=== PATIENT | female | born 1940 | race African-American/Black ===

== ENCOUNTER 2016-04-03 08:10 | Outpatient (CLI) | payer MEDICARE ==
[~2016-04-03 08:10] MED LIST: ACETAMINOPHEN 325 MG TABLET PO PRN; DEXAMETHASONE SOD PHOSPHATE INJ 4 MG/1 ML VIAL IV PRN; DEXTROSE 5%-WATER 250 ML IV PRN; DIPHENHYDRAMINE HCL 50 MG in NORMAL SALINE 50 ML INJ PRN; [UNRECOGNIZED DRUG - OTHER] IV PRN
[2016-04-03 09:20] VITALS: BP 141/65
== END 2016-04-03 11:49 | disposition home or self-care (01) ==
LOC: II 08:10
PROVIDERS: ATTEND Internal Medicine
PROC: 3E0330M Introduction of Antineoplastic, Monoclonal Antibody, into Peripheral Vein, Percutaneous Approach (ICD-10-PCS; principal; 2016-04-03)
PROC: 3E033GC Introduction of Other Therapeutic Substance into Peripheral Vein, Percutaneous Approach (ICD-10-PCS; 2016-04-03)
DX: Z51.11 Encounter for antineoplastic chemotherapy (principal); C85.91 Non-Hodgkin lymphoma, unspecified, lymph nodes of head, face, and neck
CPT/HCPCS: 96413; 96375; A9270; J1100; J1200; J7060; J2860; 96360; 96374

== ENCOUNTER 2016-04-24 11:15 | Outpatient (CLI) | payer MEDICARE ==
[~2016-04-24 11:15] MED LIST changes: -DIPHENHYDRAMINE HCL 50 MG in NORMAL SALINE 50 ML INJ PRN
[2016-04-24] MEDS: DIPHENHYDRAMINE HCL 50 MG in NORMAL SALINE 50 ML INJ PRN ×2 (12:41→13:14)
[2016-04-24 13:09] VITALS: BP 125/61
== END 2016-04-24 14:37 | disposition home or self-care (01) ==
LOC: II 11:15 → 5TH 11:17 → II 14:37
PROVIDERS: ATTEND Internal Medicine
PROC: 3E0330M Introduction of Antineoplastic, Monoclonal Antibody, into Peripheral Vein, Percutaneous Approach (ICD-10-PCS; principal; 2016-04-24)
PROC: 3E033GC Introduction of Other Therapeutic Substance into Peripheral Vein, Percutaneous Approach (ICD-10-PCS; 2016-04-24)
PROC: 3E033GC Introduction of Other Therapeutic Substance into Peripheral Vein, Percutaneous Approach (ICD-10-PCS; 2016-04-24)
DX: Z51.11 Encounter for antineoplastic chemotherapy (principal); C85.91 Non-Hodgkin lymphoma, unspecified, lymph nodes of head, face, and neck
CPT/HCPCS: 96413; 96367; 96375; A9270; J1100; J1200; J7060; J2860

== ENCOUNTER 2016-05-15 09:31 | Outpatient (CLI) | payer MEDICARE ==
[~2016-05-15 09:31] MED LIST changes: +DIPHENHYDRAMINE HCL 50 MG in NORMAL SALINE 50 ML INJ PRN; +DIPHENHYDRAMINE HCL 50 MG in NORMAL SALINE 50 ML IV PRN; +[UNRECOGNIZED DRUG - OTHER] IV PRN; -[UNRECOGNIZED DRUG - OTHER] IV PRN
[2016-05-15 10:11] VITALS: BP 123/60
[2016-05-15] MEDS ORDERED: DIPHENHYDRAMINE HCL 50 MG/ML VIAL INJ PRN (10:13)
== END 2016-05-15 14:34 | disposition home or self-care (01) ==
LOC: II 09:31 → 5TH 09:33 → II 14:34
PROVIDERS: ATTEND Internal Medicine
PROC: 3E03305 Introduction of Other Antineoplastic into Peripheral Vein, Percutaneous Approach (ICD-10-PCS; principal; 2016-05-15)
PROC: 3E033GC Introduction of Other Therapeutic Substance into Peripheral Vein, Percutaneous Approach (ICD-10-PCS; 2016-05-15)
PROC: 3E033GC Introduction of Other Therapeutic Substance into Peripheral Vein, Percutaneous Approach (ICD-10-PCS; 2016-05-15)
DX: C85.91 Non-Hodgkin lymphoma, unspecified, lymph nodes of head, face, and neck (principal); Z51.11 Encounter for antineoplastic chemotherapy
CPT/HCPCS: 96413; 96367; 96375; A9270; J1100; J1200; J7060; J2860

== ENCOUNTER 2016-06-06 09:26 | Outpatient (CLI) | payer MEDICARE ==
[2016-06-06] MEDS ORDERED: DEXTROSE 5%-WATER 250 ML IV PRN (09:51)
[2016-06-06] MEDS ORDERED: ACETAMINOPHEN 325 MG TABLET PO PRN (09:53)
[2016-06-06] MEDS ORDERED: DEXAMETHASONE SOD PHOSPHATE INJ 4 MG/1 ML VIAL IV PRN (09:53)
[2016-06-06] MEDS ORDERED: DIPHENHYDRAMINE HCL 50 MG in NORMAL SALINE 50 ML INJ PRN (09:54)
[2016-06-06] MEDS ORDERED: [UNRECOGNIZED DRUG - OTHER] IV PRN (09:56)
[2016-06-06 10:18] VITALS: BP 140/59
== END 2016-06-06 12:30 | disposition home or self-care (01) ==
LOC: II 09:26 → 5TH 09:30 → II 12:30
PROVIDERS: ATTEND Internal Medicine
PROC: 3E03305 Introduction of Other Antineoplastic into Peripheral Vein, Percutaneous Approach (ICD-10-PCS; principal; 2016-06-06)
PROC: 3E033GC Introduction of Other Therapeutic Substance into Peripheral Vein, Percutaneous Approach (ICD-10-PCS; 2016-06-06)
DX: Z51.11 Encounter for antineoplastic chemotherapy (principal); C85.91 Non-Hodgkin lymphoma, unspecified, lymph nodes of head, face, and neck
CPT/HCPCS: 96413; 96415; 96375; A9270; J1100; J1200; J7060; 96367

== ENCOUNTER 2016-06-27 12:08 | Outpatient (CLI) | payer MEDICARE ==
[~2016-06-27 12:08] MED LIST changes: -DEXAMETHASONE SOD PHOSPHATE INJ 4 MG/1 ML VIAL IV PRN; -DEXTROSE 5%-WATER 250 ML IV PRN; -DIPHENHYDRAMINE HCL 50 MG in NORMAL SALINE 50 ML INJ PRN
[2016-06-27 13:49] VITALS: BP 114/53
[2016-06-27] MEDS: DEXTROSE 5%-WATER 250 ML IV PRN ×2 (14:01→14:51)
== END 2016-06-27 15:50 | disposition home or self-care (01) ==
LOC: II 12:08 → 5TH 12:11 → II 15:50
PROVIDERS: ATTEND Internal Medicine
PROC: 3E0330M Introduction of Antineoplastic, Monoclonal Antibody, into Peripheral Vein, Percutaneous Approach (ICD-10-PCS; principal; 2016-06-27)
PROC: 3E033GC Introduction of Other Therapeutic Substance into Peripheral Vein, Percutaneous Approach (ICD-10-PCS; 2016-06-27)
PROC: 3E0337Z Introduction of Electrolytic and Water Balance Substance into Peripheral Vein, Percutaneous Approach (ICD-10-PCS; 2016-06-27)
DX: Z51.11 Encounter for antineoplastic chemotherapy (principal); C85.91 Non-Hodgkin lymphoma, unspecified, lymph nodes of head, face, and neck
CPT/HCPCS: 96413; 96375; 96361; A9270; J1200; J7060; J2860; 96374; 96415

== ENCOUNTER 2016-07-18 08:27 | Outpatient (CLI) | payer MEDICARE ==
[~2016-07-18 08:27] MED LIST changes: +DEXAMETHASONE SOD PHOSPHATE INJ 4 MG/1 ML VIAL IV PRN; +DEXTROSE 5% IV PRN; +DEXTROSE 5%-WATER 250 ML IV PRN; +WATER IV PRN; +[UNRECOGNIZED DRUG - OTHER] IV PRN; -[UNRECOGNIZED DRUG - OTHER] IV PRN
[2016-07-18 09:36] VITALS: BP 145/72
== END 2016-07-18 10:22 | disposition home or self-care (01) ==
LOC: II 08:27 → 5TH 08:32 → II 10:22
PROVIDERS: ATTEND Internal Medicine
DX: Z51.11 Encounter for antineoplastic chemotherapy (principal); C85.91 Non-Hodgkin lymphoma, unspecified, lymph nodes of head, face, and neck
CPT/HCPCS: 96413; 96375; A9270; J1100; J1200; J7060; J2860; 96360; 96367; 96374

== ENCOUNTER 2016-08-08 10:04 | Outpatient (CLI) | payer MEDICARE ==
[2016-08-08 11:27] VITALS: BP 148/79
== END 2016-08-08 14:08 | disposition home or self-care (01) ==
LOC: II 10:04 → 5TH 10:09 → II 14:08
PROVIDERS: ATTEND Internal Medicine
PROC: 3E0330M Introduction of Antineoplastic, Monoclonal Antibody, into Peripheral Vein, Percutaneous Approach (ICD-10-PCS; principal; 2016-08-08)
PROC: 3E0333Z Introduction of Anti-inflammatory into Peripheral Vein, Percutaneous Approach (ICD-10-PCS; 2016-08-08)
DX: Z51.11 Encounter for antineoplastic chemotherapy (principal); C85.91 Non-Hodgkin lymphoma, unspecified, lymph nodes of head, face, and neck
CPT/HCPCS: 96413; 96367; 96374; A9270; J1100; J1200; J7060; J2860

== ENCOUNTER 2016-08-29 10:20 | Outpatient (CLI) | payer MEDICARE ==
[~2016-08-29 10:20] MED LIST changes: +[UNRECOGNIZED DRUG - OTHER] IV PRN; -[UNRECOGNIZED DRUG - OTHER] IV PRN
[2016-08-29 11:13] VITALS: BP 160/68
== END 2016-08-29 13:04 | disposition home or self-care (01) ==
LOC: II 10:20 → 5TH 10:21 → II 13:04
PROVIDERS: ATTEND Internal Medicine
PROC: 3E0330M Introduction of Antineoplastic, Monoclonal Antibody, into Peripheral Vein, Percutaneous Approach (ICD-10-PCS; principal; 2016-08-29)
PROC: 3E0333Z Introduction of Anti-inflammatory into Peripheral Vein, Percutaneous Approach (ICD-10-PCS; 2016-08-29)
DX: Z51.11 Encounter for antineoplastic chemotherapy (principal); C85.91 Non-Hodgkin lymphoma, unspecified, lymph nodes of head, face, and neck
CPT/HCPCS: 96413; 96367; 96375; A9270; J1100; J1200; J7060; J2860

== ENCOUNTER → 2016-09-16 | Outpatient (CLI) | payer MEDICARE ==
--- NOTE | 2016-09-17 09:06 | RADIOLOGY REPORT (SQ) ---
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 TECHNIQUE: Blood glucose level was verified. Above dose of FDG was injected intravenously. 2-D seg mented attenuation correction images were obtained from the base of the skull to the midthighs. Nonc ontrast CT images were obtained for attenuation correction and fusion with emission images. CT image s were performed without oral or intravenous contrast and are not sensitive for parenchymal lesions. A series of overlapping emission PET images were obtained. Images reviewed and manipulated at [facility] work station by the radiologist. Images stored on PACS. LIMITATIONS: None. FINDINGS: HEAD AND NECK: No areas of abnormal metabolic activity in the soft tissues of the head and neck. CHEST: No areas of abnormal metabolic activity in the chest. ABDOMEN AND PELVIS: No areas of abnormal metabolic activity in the abdomen or pelvis. Expected physi ologic activity is present in the genitourinary system and bowel. PROXIMAL LOWER EXTREMITIES: No areas of abnormal metabolic activity in the soft tissues of the lower extremities. BONES: No abnormal metabolic activity in the visualized skeleton. ADDITIONAL CT FINDINGS: No additional significant findings on the noncontrast CT images. OTHER: No other significant findings. IMPRESSION: Favorable response to therapy. No evidence of local recurrence. TECHNICAL DOCUMENTATION: JOB ID: [id number] [employer]- All Rights Reserved
== END ==
LOC: RAD 15:36
PROVIDERS: ATTEND Internal Medicine
DX: C85.91 Non-Hodgkin lymphoma, unspecified, lymph nodes of head, face, and neck (principal)
CPT/HCPCS: 78815; A9552

== ENCOUNTER 2016-09-19 11:42 | Outpatient (CLI) | payer MEDICARE ==
[~2016-09-19 11:42] MED LIST changes: +DIPHENHYDRAMINE HCL 50 MG in NORMAL SALINE 50 ML INJ PRN; -DIPHENHYDRAMINE HCL 50 MG in NORMAL SALINE 50 ML IV PRN
[2016-09-19 13:55] VITALS: BP 138/59
== END 2016-09-19 14:45 | disposition home or self-care (01) ==
LOC: II 11:42 → 5TH 11:45 → II 14:45
PROVIDERS: ATTEND Internal Medicine
PROC: 3E0330M Introduction of Antineoplastic, Monoclonal Antibody, into Peripheral Vein, Percutaneous Approach (ICD-10-PCS; principal; 2016-09-19)
PROC: 3E0333Z Introduction of Anti-inflammatory into Peripheral Vein, Percutaneous Approach (ICD-10-PCS; 2016-09-19)
PROC: 3E033GC Introduction of Other Therapeutic Substance into Peripheral Vein, Percutaneous Approach (ICD-10-PCS; 2016-09-19)
DX: Z51.11 Encounter for antineoplastic chemotherapy (principal); C85.91 Non-Hodgkin lymphoma, unspecified, lymph nodes of head, face, and neck
CPT/HCPCS: 96413; 96367; 96375; A9270; J1100; J1200; J7060; J2860; 96374

== ENCOUNTER 2016-10-10 08:59 | Outpatient (CLI) | payer MEDICARE ==
[~2016-10-10 08:59] MED LIST changes: -DEXTROSE 5% IV PRN; +DEXTROSE IV PRN; -DIPHENHYDRAMINE HCL 50 MG in NORMAL SALINE 50 ML INJ PRN; +DIPHENHYDRAMINE HCL 50 MG in NORMAL SALINE 50 ML IV PRN; -WATER IV PRN; +[UNRECOGNIZED DRUG - OTHER] IV PRN; -[UNRECOGNIZED DRUG - OTHER] IV PRN
[2016-10-10 09:41] VITALS: BP 153/72
== END 2016-10-10 12:39 | disposition home or self-care (01) ==
LOC: II 08:59 → 5TH 09:13 → II 12:39
PROVIDERS: ATTEND Internal Medicine
PROC: 3E0330M Introduction of Antineoplastic, Monoclonal Antibody, into Peripheral Vein, Percutaneous Approach (ICD-10-PCS; principal; 2016-10-10)
PROC: 3E0333Z Introduction of Anti-inflammatory into Peripheral Vein, Percutaneous Approach (ICD-10-PCS; 2016-10-10)
PROC: 3E033GC Introduction of Other Therapeutic Substance into Peripheral Vein, Percutaneous Approach (ICD-10-PCS; 2016-10-10)
DX: Z51.11 Encounter for antineoplastic chemotherapy (principal); C85.91 Non-Hodgkin lymphoma, unspecified, lymph nodes of head, face, and neck
CPT/HCPCS: 96413; 96367; 96374; A9270; J1100; J1200; J7060; J2860; 96375

== ENCOUNTER 2016-10-31 11:47 | Outpatient (CLI) | payer MEDICARE ==
[~2016-10-31 11:47] MED LIST changes: -DEXAMETHASONE SOD PHOSPHATE INJ 4 MG/1 ML VIAL IV PRN; +DIPHENHYDRAMINE HCL 50 MG in NORMAL SALINE 50 ML INJ PRN; -DIPHENHYDRAMINE HCL 50 MG in NORMAL SALINE 50 ML IV PRN
[2016-10-31 12:02] VITALS: BP 151/65
== END 2016-10-31 14:45 | disposition home or self-care (01) ==
LOC: II 11:47 → 5TH 11:49 → II 14:45
PROVIDERS: ATTEND Internal Medicine
PROC: 3E0330M Introduction of Antineoplastic, Monoclonal Antibody, into Peripheral Vein, Percutaneous Approach (ICD-10-PCS; principal; 2016-10-31)
PROC: 3E033GC Introduction of Other Therapeutic Substance into Peripheral Vein, Percutaneous Approach (ICD-10-PCS; 2016-10-31)
DX: Z51.11 Encounter for antineoplastic chemotherapy (principal); C85.91 Non-Hodgkin lymphoma, unspecified, lymph nodes of head, face, and neck; D36.0 Benign neoplasm of lymph nodes; D47.Z2 Castleman disease
CPT/HCPCS: 96413; 96375; A9270; J1200; J7060; J2860; 96367

== ENCOUNTER 2016-11-21 07:53 | Outpatient (CLI) | payer MEDICARE ==
[~2016-11-21 07:53] MED LIST changes: +DEXTROSE 5% IV PRN; -DEXTROSE IV PRN; -DIPHENHYDRAMINE HCL 50 MG in NORMAL SALINE 50 ML INJ PRN; +DIPHENHYDRAMINE HCL 50 MG in NORMAL SALINE 50 ML IV PRN; +WATER IV PRN; +[UNRECOGNIZED DRUG - OTHER] IV PRN; -[UNRECOGNIZED DRUG - OTHER] IV PRN
[2016-11-21 08:19] VITALS: BP 144/52
== END 2016-11-21 11:44 | disposition home or self-care (01) ==
LOC: II 07:53 → 4W 07:55 → II 11:44
PROVIDERS: ATTEND Internal Medicine
PROC: 3E0330M Introduction of Antineoplastic, Monoclonal Antibody, into Peripheral Vein, Percutaneous Approach (ICD-10-PCS; principal; 2016-11-21)
PROC: 3E033GC Introduction of Other Therapeutic Substance into Peripheral Vein, Percutaneous Approach (ICD-10-PCS; 2016-11-21)
DX: Z51.11 Encounter for antineoplastic chemotherapy (principal); C85.91 Non-Hodgkin lymphoma, unspecified, lymph nodes of head, face, and neck; D36.0 Benign neoplasm of lymph nodes; D47.Z2 Castleman disease
CPT/HCPCS: 96413; 96375; A9270; J1200; J7060; J2860; 96374; 96415

== ENCOUNTER 2016-12-12 08:26 | Outpatient (CLI) | payer MEDICARE ==
[~2016-12-12 08:26] MED LIST changes: +DIPHENHYDRAMINE HCL 50 MG in NORMAL SALINE 50 ML INJ PRN; -DIPHENHYDRAMINE HCL 50 MG in NORMAL SALINE 50 ML IV PRN
[2016-12-12 09:29] VITALS: BP 150/67
== END 2016-12-12 11:20 | disposition home or self-care (01) ==
LOC: II 08:26 → 5TH 08:27 → II 11:20
PROVIDERS: ATTEND Internal Medicine
PROC: 3E0330M Introduction of Antineoplastic, Monoclonal Antibody, into Peripheral Vein, Percutaneous Approach (ICD-10-PCS; principal; 2016-12-12)
PROC: 3E033GC Introduction of Other Therapeutic Substance into Peripheral Vein, Percutaneous Approach (ICD-10-PCS; 2016-12-12)
DX: Z51.11 Encounter for antineoplastic chemotherapy (principal); C85.91 Non-Hodgkin lymphoma, unspecified, lymph nodes of head, face, and neck
CPT/HCPCS: 96413; 96367; A9270; J1200; J7060; J2860

== ENCOUNTER 2017-01-02 11:06 | Outpatient (CLI) | payer MEDICARE ==
[~2017-01-02 11:06] MED LIST changes: -DIPHENHYDRAMINE HCL 50 MG in NORMAL SALINE 50 ML INJ PRN; +DIPHENHYDRAMINE HCL 50 MG in NORMAL SALINE 50 ML IV PRN
[2017-01-02 11:49] VITALS: BP 150/63
== END 2017-01-02 13:54 | disposition home or self-care (01) ==
LOC: II 11:06 → 5TH 11:08 → II 13:54
PROVIDERS: ATTEND Internal Medicine
PROC: 3E0330M Introduction of Antineoplastic, Monoclonal Antibody, into Peripheral Vein, Percutaneous Approach (ICD-10-PCS; principal; 2017-01-02)
PROC: 3E033GC Introduction of Other Therapeutic Substance into Peripheral Vein, Percutaneous Approach (ICD-10-PCS; 2017-01-02)
DX: Z51.11 Encounter for antineoplastic chemotherapy (principal); C85.91 Non-Hodgkin lymphoma, unspecified, lymph nodes of head, face, and neck
CPT/HCPCS: 96413; 96375; A9270; J1200; J7060; J2860; 96367

== ENCOUNTER 2017-01-23 09:00 | Outpatient (CLI) | payer MEDICARE ==
[2017-01-23 09:23] VITALS: BP 139/62
== END 2017-01-23 11:48 | disposition home or self-care (01) ==
LOC: II 09:00 → 5TH 09:06 → II 11:48
PROVIDERS: ATTEND Internal Medicine
PROC: 3E0330M Introduction of Antineoplastic, Monoclonal Antibody, into Peripheral Vein, Percutaneous Approach (ICD-10-PCS; principal; 2017-01-23)
PROC: 3E033GC Introduction of Other Therapeutic Substance into Peripheral Vein, Percutaneous Approach (ICD-10-PCS; 2017-01-23)
DX: Z51.11 Encounter for antineoplastic chemotherapy (principal); C85.91 Non-Hodgkin lymphoma, unspecified, lymph nodes of head, face, and neck
CPT/HCPCS: 96413; 96367; A9270; J1200; J7060; J2860

== ENCOUNTER 2017-02-13 08:06 | Outpatient (CLI) | payer MEDICARE ==
[~2017-02-13 08:06] MED LIST changes: -DIPHENHYDRAMINE HCL 50 MG in NORMAL SALINE 50 ML IV PRN; +DIPHENHYDRAMINE HCL INJ PRN; +NORMAL SALINE INJ PRN
[2017-02-13] MEDS ORDERED: DIPHENHYDRAMINE HCL 50 MG/ML VIAL ONE (09:12)
[2017-02-13 09:42] VITALS: BP 162/58
== END 2017-02-13 12:28 | disposition home or self-care (01) ==
LOC: II 08:06 → 5TH 08:07 → II 12:28
PROVIDERS: ATTEND Internal Medicine
PROC: 3E0330M Introduction of Antineoplastic, Monoclonal Antibody, into Peripheral Vein, Percutaneous Approach (ICD-10-PCS; principal; 2017-02-13)
DX: Z51.11 Encounter for antineoplastic chemotherapy (principal); C85.91 Non-Hodgkin lymphoma, unspecified, lymph nodes of head, face, and neck; D36.0 Benign neoplasm of lymph nodes; D47.Z2 Castleman disease
CPT/HCPCS: 96413; 96375; A9270; J1200; J7060; J2860

== ENCOUNTER → 2017-03-03 | Outpatient (CLI) | payer MEDICARE ==
--- NOTE | 2017-03-04 16:55 | RADIOLOGY REPORT (SQ) ---
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 TECHNIQUE: Blood glucose level was verified. Above dose of FDG was injected intravenously. 2-D seg mented attenuation correction images were obtained from the base of the skull to the midthighs. Nonc ontrast CT images were obtained for attenuation correction and fusion with emission images. CT image s were performed without oral or intravenous contrast and are not sensitive for parenchymal lesions. A series of overlapping emission PET images were obtained. Images reviewed and manipulated at [facility] work station by the radiologist. Images stored on PACS. LIMITATIONS: None. FINDINGS: HEAD AND NECK: No areas of abnormal metabolic activity in the soft tissues of the head and neck. CHEST: No areas of abnormal metabolic activity in the chest. ABDOMEN AND PELVIS: No areas of abnormal metabolic activity in the abdomen or pelvis. Expected physi ologic activity is present in the genitourinary system and bowel. PROXIMAL LOWER EXTREMITIES: No areas of abnormal metabolic activity in the soft tissues of the lower extremities. BONES: No abnormal metabolic activity in the visualized skeleton. ADDITIONAL CT FINDINGS: 5 x 4 cm right renal cortical cysts. Moderate cardiomegaly. Small hiatal he rnia. Non metabolic scarring along the right anterior abdominal wall fat axial image 133 unchanged c ompared to 12/26/2014. OTHER: Liver background SUV 2.1. Blood pool background SUV 1.8 IMPRESSION: No hypermetabolic adenopathy. TECHNICAL DOCUMENTATION: JOB ID: [id number] [employer]- All Rights Reserved
== END ==
LOC: RAD 15:23
PROVIDERS: ATTEND Internal Medicine
DX: C85.91 Non-Hodgkin lymphoma, unspecified, lymph nodes of head, face, and neck (principal)
CPT/HCPCS: 78815; A9552

== ENCOUNTER 2017-03-06 09:53 | Outpatient (CLI) | payer MEDICARE ==
[2017-03-06 11:20] VITALS: BP 141/83
== END 2017-03-06 13:16 | disposition home or self-care (01) ==
LOC: II 09:53 → 5TH 09:55 → II 13:16
PROVIDERS: ATTEND Internal Medicine
PROC: 3E0330M Introduction of Antineoplastic, Monoclonal Antibody, into Peripheral Vein, Percutaneous Approach (ICD-10-PCS; principal; 2017-03-06)
DX: Z51.11 Encounter for antineoplastic chemotherapy (principal); C85.91 Non-Hodgkin lymphoma, unspecified, lymph nodes of head, face, and neck
CPT/HCPCS: 96413; A9270; J1200; J7060; J2860

== ENCOUNTER 2017-03-27 08:04 | Outpatient (CLI) | payer MEDICARE ==
[~2017-03-27 08:04] MED LIST changes: +DIPHENHYDRAMINE HCL 50 MG in NORMAL SALINE 50 ML IV PRN; -DIPHENHYDRAMINE HCL INJ PRN; -NORMAL SALINE INJ PRN; +[UNRECOGNIZED DRUG - OTHER] IV PRN; -[UNRECOGNIZED DRUG - OTHER] IV PRN
[2017-03-27 08:55] VITALS: BP 141/67
== END 2017-03-27 11:16 | disposition home or self-care (01) ==
LOC: 5TH 08:04 → II 08:04
PROVIDERS: ATTEND Internal Medicine
PROC: 3E0330M Introduction of Antineoplastic, Monoclonal Antibody, into Peripheral Vein, Percutaneous Approach (ICD-10-PCS; principal; 2017-03-27)
PROC: 3E033GC Introduction of Other Therapeutic Substance into Peripheral Vein, Percutaneous Approach (ICD-10-PCS; 2017-03-27)
DX: Z51.11 Encounter for antineoplastic chemotherapy (principal); C85.91 Non-Hodgkin lymphoma, unspecified, lymph nodes of head, face, and neck
CPT/HCPCS: 96413; 96374; A9270; J1200; J7060; J2860; 96375; 96415

== ENCOUNTER 2017-04-17 08:00 | Outpatient (CLI) | payer MEDICARE ==
[~2017-04-17 08:00] MED LIST changes: +[UNRECOGNIZED DRUG - OTHER] IV PRN; -[UNRECOGNIZED DRUG - OTHER] IV PRN
[2017-04-17 08:16] LABS: ABSOLUTE LYMPHOCYTES (AUTO) 2.2 10^3/uL (0.5-4.7); ABSOLUTE MONOCYTES (AUTO) 0.5 10^3/uL (0.1-1.4); ABSOLUTE NEUT (AUTO) 1.8 10^3/uL (1.7-8.2); BASOPHILS % (AUTO) 0.7 % (0-2); EOSINOPHILS % (AUTO) 0.5 % (0-6); HEMATOCRIT 40.2 % (36.0-47.0); HEMOGLOBIN 13.5 g/dL (12.0-15.5); LYMPHOCYTES % (AUTO) 48.6 % (13-45); MEAN CORPUSCULAR HEMOGLOBIN 32.6 pg (27.0-33.4); MEAN CORPUSCULAR HGB CONC 33.6 g/dL (32.0-36.0); MEAN CORPUSCULAR VOLUME 97 fl (80-97); MONOCYTES % (AUTO) 11.5 % (3-13); PLATELET COUNT 107 10^3/uL (150-450); RED BLOOD COUNT 4.14 10^6/uL (3.72-5.28); RED CELL DISTRIBUTION WIDTH 12.1 % (11.5-14.0); SEGMENTED NEUTROPHILS % (AUTO) 38.7 % (42-78); TOTAL CELLS COUNTED % (AUTO) 100 %; WHITE BLOOD COUNT 4.6 10^3/uL (4.0-10.5)
[2017-04-17 08:46] VITALS: BP 140/71
== END 2017-04-17 11:20 | disposition home or self-care (01) ==
LOC: II 08:00 → 5TH 08:01 → II 11:20
PROVIDERS: ATTEND Internal Medicine
PROC: 3E0330M Introduction of Antineoplastic, Monoclonal Antibody, into Peripheral Vein, Percutaneous Approach (ICD-10-PCS; principal; 2017-04-17)
PROC: 3E033GC Introduction of Other Therapeutic Substance into Peripheral Vein, Percutaneous Approach (ICD-10-PCS; 2017-04-17)
DX: Z51.11 Encounter for antineoplastic chemotherapy (principal); C85.91 Non-Hodgkin lymphoma, unspecified, lymph nodes of head, face, and neck
CPT/HCPCS: 36415; 85025; 96413; 96374; A9270; J1200; J7060; J2860; 96375

== ENCOUNTER 2017-05-08 10:27 | Outpatient (CLI) | payer MEDICARE ==
[~2017-05-08 10:27] MED LIST changes: -DIPHENHYDRAMINE HCL 50 MG in NORMAL SALINE 50 ML IV PRN; +DIPHENHYDRAMINE HCL IV PRN
[2017-05-08 15:51] VITALS: BP 143/74
== END 2017-05-08 15:51 | disposition home or self-care (01) ==
LOC: II 10:27
PROVIDERS: ATTEND Internal Medicine Hematology & Oncology
PROC: 3E0330M Introduction of Antineoplastic, Monoclonal Antibody, into Peripheral Vein, Percutaneous Approach (ICD-10-PCS; principal; 2017-05-08)
PROC: 3E033GC Introduction of Other Therapeutic Substance into Peripheral Vein, Percutaneous Approach (ICD-10-PCS; 2017-05-08)
DX: Z51.11 Encounter for antineoplastic chemotherapy (principal); C85.91 Non-Hodgkin lymphoma, unspecified, lymph nodes of head, face, and neck
CPT/HCPCS: 96413; 96374; A9270; J1200; J7060; J2860

== ENCOUNTER 2017-05-29 12:54 | Outpatient (CLI) | payer MEDICARE ==
[~2017-05-29 12:54] MED LIST changes: +DIPHENHYDRAMINE HCL 50 MG in NORMAL SALINE 50 ML IV PRN; -DIPHENHYDRAMINE HCL IV PRN; +[UNRECOGNIZED DRUG - OTHER] IV PRN; -[UNRECOGNIZED DRUG - OTHER] IV PRN
[2017-05-29 13:54] VITALS: BP 128/63
== END 2017-05-29 15:46 | disposition home or self-care (01) ==
LOC: II 12:54 → 5TH 13:30 → II 15:46
PROVIDERS: ATTEND Internal Medicine
PROC: 3E0330M Introduction of Antineoplastic, Monoclonal Antibody, into Peripheral Vein, Percutaneous Approach (ICD-10-PCS; principal; 2017-05-29)
PROC: 3E033GC Introduction of Other Therapeutic Substance into Peripheral Vein, Percutaneous Approach (ICD-10-PCS; 2017-05-29)
DX: Z51.11 Encounter for antineoplastic chemotherapy (principal); C85.91 Non-Hodgkin lymphoma, unspecified, lymph nodes of head, face, and neck
CPT/HCPCS: 96413; 96367; A9270; J1200; J7060; J2860; 96375

== ENCOUNTER 2017-06-19 11:48 | Outpatient (CLI) | payer MEDICARE ==
[2017-06-19 12:21] VITALS: BP 140/60
== END 2017-06-19 14:57 | disposition home or self-care (01) ==
LOC: II 11:48 → 5TH 11:58 → II 14:57
PROVIDERS: ATTEND Internal Medicine Hematology & Oncology
PROC: 3E0330M Introduction of Antineoplastic, Monoclonal Antibody, into Peripheral Vein, Percutaneous Approach (ICD-10-PCS; principal; 2017-06-19)
PROC: 3E033GC Introduction of Other Therapeutic Substance into Peripheral Vein, Percutaneous Approach (ICD-10-PCS; 2017-06-19)
DX: Z51.11 Encounter for antineoplastic chemotherapy (principal); C85.91 Non-Hodgkin lymphoma, unspecified, lymph nodes of head, face, and neck
CPT/HCPCS: 96413; 96367; A9270; J1200; J7060; J2860

== ENCOUNTER 2017-07-10 10:23 | Outpatient (CLI) | payer MEDICARE ==
[~2017-07-10 10:23] MED LIST changes: +DIPHENHYDRAMINE HCL 50 MG in NORMAL SALINE 50 ML INJ PRN; -DIPHENHYDRAMINE HCL 50 MG in NORMAL SALINE 50 ML IV PRN
[2017-07-10 11:34] VITALS: BP 150/82
== END 2017-07-10 14:22 | disposition home or self-care (01) ==
LOC: II 10:23 → 5TH 10:27 → II 14:22
PROVIDERS: ATTEND Internal Medicine
PROC: 3E0330M Introduction of Antineoplastic, Monoclonal Antibody, into Peripheral Vein, Percutaneous Approach (ICD-10-PCS; principal; 2017-07-10)
PROC: 3E033GC Introduction of Other Therapeutic Substance into Peripheral Vein, Percutaneous Approach (ICD-10-PCS; 2017-07-10)
DX: Z51.11 Encounter for antineoplastic chemotherapy (principal); C85.91 Non-Hodgkin lymphoma, unspecified, lymph nodes of head, face, and neck
CPT/HCPCS: 96413; A9270; J1200; J7060; J2860; 96367

== ENCOUNTER 2017-07-31 08:05 | Outpatient (CLI) | payer MEDICARE ==
[~2017-07-31 08:05] MED LIST changes: -DIPHENHYDRAMINE HCL 50 MG in NORMAL SALINE 50 ML INJ PRN; +DIPHENHYDRAMINE HCL 50 MG in NORMAL SALINE 50 ML IV PRN; +[UNRECOGNIZED DRUG - OTHER] IV PRN; -[UNRECOGNIZED DRUG - OTHER] IV PRN
[2017-07-31 08:31] VITALS: BP 137/68
== END 2017-07-31 11:00 | disposition home or self-care (01) ==
LOC: II 08:05 → 5TH 08:10 → II 11:00
PROVIDERS: ATTEND Internal Medicine
PROC: 3E0330M Introduction of Antineoplastic, Monoclonal Antibody, into Peripheral Vein, Percutaneous Approach (ICD-10-PCS; principal; 2017-07-31)
PROC: 3E033GC Introduction of Other Therapeutic Substance into Peripheral Vein, Percutaneous Approach (ICD-10-PCS; 2017-07-31)
DX: Z51.11 Encounter for antineoplastic chemotherapy (principal); C85.91 Non-Hodgkin lymphoma, unspecified, lymph nodes of head, face, and neck
CPT/HCPCS: 96367; 96413; J1200; J2860; J7060

== ENCOUNTER 2017-08-21 07:57 | Outpatient (CLI) | payer MEDICARE ==
[2017-08-21] MEDS ORDERED: WATER IV PRN (08:00)
[2017-08-21] MEDS ORDERED: DEXTROSE 5% IV PRN (08:00)
[2017-08-21] MEDS ORDERED: DEXTROSE 5%-WATER 250 ML IV PRN (08:00)
[2017-08-21] MEDS ORDERED: [UNRECOGNIZED DRUG - OTHER] IV PRN (08:00)
[2017-08-21] MEDS ORDERED: ACETAMINOPHEN 325 MG TABLET PO PRN (08:00)
[2017-08-21] MEDS ORDERED: DIPHENHYDRAMINE HCL 50 MG in NORMAL SALINE 50 ML IV PRN (08:00)
[2017-08-21 08:10] VITALS: BP 146/69
== END 2017-08-21 10:45 | disposition home or self-care (01) ==
LOC: II 07:57 → 5TH 07:59 → II 10:45
PROVIDERS: ATTEND Internal Medicine
PROC: 3E0330M Introduction of Antineoplastic, Monoclonal Antibody, into Peripheral Vein, Percutaneous Approach (ICD-10-PCS; principal; 2017-08-21)
PROC: 3E033GC Introduction of Other Therapeutic Substance into Peripheral Vein, Percutaneous Approach (ICD-10-PCS; 2017-08-21)
DX: Z51.11 Encounter for antineoplastic chemotherapy (principal); C85.91 Non-Hodgkin lymphoma, unspecified, lymph nodes of head, face, and neck
CPT/HCPCS: 96413; 96367; A9270; J1200; J7060; J2860

== ENCOUNTER 2017-09-11 09:36 | Outpatient (CLI) | payer MEDICARE ==
[2017-09-11 10:16] VITALS: BP 126/59
== END 2017-09-11 13:17 | disposition home or self-care (01) ==
LOC: II 09:36 → 5TH 10:17 → II 13:17
PROVIDERS: ATTEND Internal Medicine
PROC: 3E0330M Introduction of Antineoplastic, Monoclonal Antibody, into Peripheral Vein, Percutaneous Approach (ICD-10-PCS; principal; 2017-09-11)
DX: Z51.11 Encounter for antineoplastic chemotherapy (principal); C85.91 Non-Hodgkin lymphoma, unspecified, lymph nodes of head, face, and neck
CPT/HCPCS: 96413; 96367; A9270; J1200; J7060; J2860

== ENCOUNTER → 2017-09-29 | Outpatient (CLI) | payer MEDICARE ==
--- NOTE | 2017-09-30 09:10 | RADIOLOGY REPORT (SQ) ---
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 TECHNIQUE: Blood glucose level was verified. Above dose of FDG was injected intravenously. 2-D seg mented attenuation correction images were obtained from the base of the skull to the midthighs. Nonc ontrast CT images were obtained for attenuation correction and fusion with emission images. CT image s were performed without oral or intravenous contrast and are not sensitive for parenchymal lesions. A series of overlapping emission PET images were obtained. Images reviewed and manipulated at [facility] work station by the radiologist. Images stored on PACS. LIMITATIONS: None. FINDINGS: HEAD AND NECK: No areas of abnormal metabolic activity in the soft tissues of the head and neck. CHEST: No areas of abnormal metabolic activity in the chest. ABDOMEN AND PELVIS: No areas of abnormal metabolic activity in the abdomen or pelvis. Expected physi ologic activity is present in the genitourinary system and bowel. PROXIMAL LOWER EXTREMITIES: No areas of abnormal metabolic activity in the soft tissues of the lower extremities. BONES: No abnormal metabolic activity in the visualized skeleton. ADDITIONAL CT FINDINGS: Right upper pole renal cortical cyst. Cardiomegaly. Hiatal hernia. Non met abolic soft tissue stranding right anterior abdominal wall fat axial image 137 OTHER: Liver background activity 2.3 SUV, blood pool background activity 1.9 SUV. IMPRESSION: No metabolically active adenopathy worrisome for recurrence TECHNICAL DOCUMENTATION: JOB ID: [id number] [employer]- All Rights Reserved Reading location - IP/workstation name: [facility]-[email or web address]
== END ==
LOC: RAD 14:54
PROVIDERS: ATTEND Internal Medicine
DX: C85.91 Non-Hodgkin lymphoma, unspecified, lymph nodes of head, face, and neck (principal)
CPT/HCPCS: 78815; A9552

== ENCOUNTER 2017-10-02 10:04 | Outpatient (CLI) | payer MEDICARE ==
[2017-10-02 10:55] VITALS: BP 148/63
== END 2017-10-02 13:28 | disposition home or self-care (01) ==
LOC: II 10:04 → 5TH 10:04 → II 13:28
PROVIDERS: ATTEND Internal Medicine
PROC: 3E03305 Introduction of Other Antineoplastic into Peripheral Vein, Percutaneous Approach (ICD-10-PCS; principal; 2017-10-02)
PROC: 3E033GC Introduction of Other Therapeutic Substance into Peripheral Vein, Percutaneous Approach (ICD-10-PCS; 2017-10-02)
DX: Z51.11 Encounter for antineoplastic chemotherapy (principal); C85.91 Non-Hodgkin lymphoma, unspecified, lymph nodes of head, face, and neck
CPT/HCPCS: 96413; 96367; A9270; J1200; J7060; J2860

== ENCOUNTER 2017-10-23 09:46 | Outpatient (CLI) | payer MEDICARE ==
[~2017-10-23 09:46] MED LIST changes: -DEXTROSE 5% IV PRN; +DEXTROSE IV PRN; +DIPHENHYDRAMINE HCL 50 MG in NORMAL SALINE 50 ML INJ PRN; -DIPHENHYDRAMINE HCL 50 MG in NORMAL SALINE 50 ML IV PRN; -WATER IV PRN; +[UNRECOGNIZED DRUG - OTHER] IV PRN; -[UNRECOGNIZED DRUG - OTHER] IV PRN
[2017-10-23 10:17] VITALS: BP 130/57
== END 2017-10-23 14:07 | disposition home or self-care (01) ==
LOC: II 09:46 → 5TH 09:49 → II 14:07
PROVIDERS: ATTEND Internal Medicine
PROC: 3E03305 Introduction of Other Antineoplastic into Peripheral Vein, Percutaneous Approach (ICD-10-PCS; principal; 2017-10-23)
PROC: 3E033GC Introduction of Other Therapeutic Substance into Peripheral Vein, Percutaneous Approach (ICD-10-PCS; 2017-10-23)
DX: Z51.11 Encounter for antineoplastic chemotherapy (principal); C85.91 Non-Hodgkin lymphoma, unspecified, lymph nodes of head, face, and neck
CPT/HCPCS: 96413; 96367; A9270; J1200; J7060; J2860

== ENCOUNTER 2017-11-13 08:00 | Outpatient (CLI) | payer MEDICARE ==
[~2017-11-13 08:00] MED LIST changes: -DIPHENHYDRAMINE HCL 50 MG in NORMAL SALINE 50 ML INJ PRN; +DIPHENHYDRAMINE HCL 50 MG in NORMAL SALINE 50 ML IV PRN
[2017-11-13 09:32] VITALS: BP 130/68
== END 2017-11-13 11:02 | disposition home or self-care (01) ==
LOC: II 08:00 → 5TH 08:02 → II 11:02
PROVIDERS: ATTEND Internal Medicine
PROC: 3E0330M Introduction of Antineoplastic, Monoclonal Antibody, into Peripheral Vein, Percutaneous Approach (ICD-10-PCS; principal; 2017-11-13)
PROC: 3E033GC Introduction of Other Therapeutic Substance into Peripheral Vein, Percutaneous Approach (ICD-10-PCS; 2017-11-13)
DX: Z51.11 Encounter for antineoplastic chemotherapy (principal); C85.91 Non-Hodgkin lymphoma, unspecified, lymph nodes of head, face, and neck
CPT/HCPCS: 96413; 96367; A9270; J1200; J7060; J2860

== ENCOUNTER 2017-12-11 11:39 | Outpatient (CLI) | payer MEDICARE ==
[2017-12-11 13:42] VITALS: BP 122/64
== END 2017-12-11 15:16 | disposition home or self-care (01) ==
LOC: II 11:39 → 5TH 13:12 → II 15:16
PROVIDERS: ATTEND Internal Medicine
PROC: 3E0330M Introduction of Antineoplastic, Monoclonal Antibody, into Peripheral Vein, Percutaneous Approach (ICD-10-PCS; principal; 2017-12-11)
PROC: 3E033GC Introduction of Other Therapeutic Substance into Peripheral Vein, Percutaneous Approach (ICD-10-PCS; 2017-12-11)
DX: Z51.11 Encounter for antineoplastic chemotherapy (principal); C85.91 Non-Hodgkin lymphoma, unspecified, lymph nodes of head, face, and neck
CPT/HCPCS: 96413; 96367; A9270; J1200; J7060; J2860

== ENCOUNTER 2018-01-01 08:15 | Outpatient (CLI) | payer MEDICARE ==
[~2018-01-01 08:15] MED LIST changes: -DEXTROSE IV PRN; +DIPHENHYDRAMINE HCL 50 MG in NORMAL SALINE 50 ML INJ PRN; -DIPHENHYDRAMINE HCL 50 MG in NORMAL SALINE 50 ML IV PRN; +[UNRECOGNIZED DRUG - OTHER] IV PRN; -[UNRECOGNIZED DRUG - OTHER] IV PRN
[2018-01-01 08:54] VITALS: BP 122/51
== END 2018-01-01 10:37 | disposition home or self-care (01) ==
LOC: II 08:15 → 5TH 08:19 → II 10:37
PROVIDERS: ATTEND Internal Medicine
PROC: 3E0330M Introduction of Antineoplastic, Monoclonal Antibody, into Peripheral Vein, Percutaneous Approach (ICD-10-PCS; principal; 2018-01-01)
PROC: 3E033GC Introduction of Other Therapeutic Substance into Peripheral Vein, Percutaneous Approach (ICD-10-PCS; 2018-01-01)
DX: Z51.11 Encounter for antineoplastic chemotherapy (principal); C85.91 Non-Hodgkin lymphoma, unspecified, lymph nodes of head, face, and neck
CPT/HCPCS: 96413; 96375; A9270; J1200; J7060; J2860; 96367

== ENCOUNTER 2018-01-22 08:58 | Outpatient (CLI) | payer MEDICARE ==
[~2018-01-22 08:58] MED LIST changes: +DEXTROSE IV PRN; -DIPHENHYDRAMINE HCL 50 MG in NORMAL SALINE 50 ML INJ PRN; +DIPHENHYDRAMINE HCL 50 MG in NORMAL SALINE 50 ML IV PRN; +[UNRECOGNIZED DRUG - OTHER] IV PRN; -[UNRECOGNIZED DRUG - OTHER] IV PRN
[2018-01-22 09:27] LABS: ABSOLUTE LYMPHOCYTES (AUTO) 1.6 10^3/uL (0.5-4.7); ABSOLUTE MONOCYTES (AUTO) 0.5 10^3/uL (0.1-1.4); ABSOLUTE NEUT (AUTO) 1.6 10^3/uL (1.7-8.2); BASOPHILS % (AUTO) 0.4 % (0-2); EOSINOPHILS % (AUTO) 0.3 % (0-6); HEMATOCRIT 36.2 % (36.0-47.0); HEMOGLOBIN 12.5 g/dL (12.0-15.5); LYMPHOCYTES % (AUTO) 42.1 % (13-45); MEAN CORPUSCULAR HEMOGLOBIN 33.4 pg (27.0-33.4); MEAN CORPUSCULAR HGB CONC 34.6 g/dL (32.0-36.0); MEAN CORPUSCULAR VOLUME 97 fl (80-97); MONOCYTES % (AUTO) 13.2 % (3-13); PLATELET COUNT 110 10^3/uL (150-450); RED BLOOD COUNT 3.75 10^6/uL (3.72-5.28); RED CELL DISTRIBUTION WIDTH 12.1 % (11.5-14.0); TOTAL CELLS COUNTED % (AUTO) 100 %; WHITE BLOOD COUNT 3.7 10^3/uL (4.0-10.5)
[2018-01-22 09:36] VITALS: BP 134/62
[2018-01-22 09:44] LABS: ALANINE AMINOTRANSFERASE 25 U/L (9-52); ALBUMIN 4.5 g/dL (3.5-5.0); ALKALINE PHOSPHATASE 39 U/L (38-126); ANION GAP 11 (5-19); ASPARTATE AMINO TRANSFERASE 48 U/L (14-36); BILIRUBIN,DIRECT 0.1 mg/dL (0.0-0.4); BILIRUBIN,TOTAL 0.5 mg/dL (0.2-1.3); BLOOD UREA NITROGEN 17 mg/dL (7-20); CALCIUM 9.5 mg/dL (8.4-10.2); CARBON DIOXIDE 30 mmol/L (22-30); CHLORIDE 105 mmol/L (98-107); GLUCOSE 109 mg/dL (75-110); POTASSIUM 4.1 mmol/L (3.6-5.0); SODIUM 146.3 mmol/L (137-145); TOTAL PROTEIN 8.1 g/dL (6.3-8.2)
== END 2018-01-22 13:14 | disposition home or self-care (01) ==
LOC: II 08:58 → 5TH 09:10 → II 13:14
PROVIDERS: ATTEND Internal Medicine
PROC: 3E0330M Introduction of Antineoplastic, Monoclonal Antibody, into Peripheral Vein, Percutaneous Approach (ICD-10-PCS; principal; 2018-01-22)
PROC: 3E033GC Introduction of Other Therapeutic Substance into Peripheral Vein, Percutaneous Approach (ICD-10-PCS; 2018-01-22)
DX: Z51.11 Encounter for antineoplastic chemotherapy (principal); C85.91 Non-Hodgkin lymphoma, unspecified, lymph nodes of head, face, and neck
CPT/HCPCS: 36415; 85025; 80053; 96413; 96367; A9270; J1200; J7060; J2860

== ENCOUNTER 2018-02-12 11:13 | Outpatient (CLI) | payer MEDICARE ==
[2018-02-12 11:41] VITALS: BP 137/64
[2018-02-12] MEDS ORDERED: DEXTROSE 5% IV PRN (11:54)
[2018-02-12] MEDS ORDERED: WATER IV PRN (11:54)
[2018-02-12] MEDS ORDERED: [UNRECOGNIZED DRUG - OTHER] IV PRN (11:54)
== END 2018-02-12 14:35 | disposition home or self-care (01) ==
LOC: II 11:13 → 5TH 11:15 → II 14:35
PROVIDERS: ATTEND Internal Medicine
PROC: 3E0330M Introduction of Antineoplastic, Monoclonal Antibody, into Peripheral Vein, Percutaneous Approach (ICD-10-PCS; principal; 2018-02-12)
PROC: 3E033GC Introduction of Other Therapeutic Substance into Peripheral Vein, Percutaneous Approach (ICD-10-PCS; 2018-02-12)
DX: Z51.11 Encounter for antineoplastic chemotherapy (principal); C85.91 Non-Hodgkin lymphoma, unspecified, lymph nodes of head, face, and neck
CPT/HCPCS: 96413; 96367; A9270; J1200; J7060; J2860

== ENCOUNTER → 2018-03-03 | Outpatient (CLI) | payer MEDICARE ==
--- NOTE | 2018-03-03 11:56 | RADIOLOGY REPORT (SQ) ---
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 RENAL FUNCTION: Creatinine 0.7 TECHNIQUE: CT scan of the chest performed using helical scanning technique with dynamic intravenous contrast injection. Images reviewed with lung, soft tissue and bone windows. Reconstructed coronal a nd sagittal MPR images reviewed. All images stored on PACS. CT scan of the abdomen and pelvis performed with intravenous and without oral contrastusing helical s tiff technique with dynamic intravenous contrast injection. Images reviewed with lung, soft tissu e and bone windows. Reconstructed coronal and sagittal MPR images reviewed. Delayed images for eval uation of the urinary system also acquired and evaluated. All images stored on PACS. All CT scanners at this facility use dose modulation, iterative reconstruction, and/or weight based d osing when appropriate to reduce radiation dose to as low as reasonably achievable (ALARA). [facility]: Dose Right [facility]: CareDose [facility]: Dose Right [facility]: Teradose 4D [facility]: ServiceMesh RADIATION DOSE: 18 mGy total exam . LIMITATIONS: None. FINDINGS: CHEST: LUNGS AND PLEURA: No opacities, nodules, masses. No pneumothorax. No effusions. HILAR AND MEDIASTINAL STRUCTURES: No identified masses or abnormal nodes. HEART AND VASCULAR STRUCTURES: No aneurysm or dissection. No central pulmonary emboli. No pericardi al effusion. HARDWARE: None. THYROID AND OTHER SOFT TISSUES: No masses. No adenopathy. BONES: No significant finding. OTHER: No other significant finding. ABDOMEN AND PELVIS: LIVER: Normal size. No masses. No dilated ducts. SPLEEN: Normal size. No focal lesions. PANCREAS: No masses. No significant calcifications. No adjacent inflammation or peripancreatic fluid collections. Pancreatic duct not dilated. GALLBLADDER: Surgically absent ADRENAL GLANDS: No significant masses or asymmetry. RIGHT KIDNEY AND URETER: No solid masses. 5.5 x 4.2 cm right upper pole renal cortical cyst. No sig nificant calcification. No hydronephrosis or hydroureter. LEFT KIDNEY AND URETER: No solid masses. No significant calcification. No hydronephrosis or hydrouret er. AORTA AND VESSELS: No aneurysm. No dissection. Renal arteries, SMA, celiac without stenosis. RETROPERITONEUM: No retroperitoneal adenopathy, hemorrhage or masses. BOWEL AND PERITONEAL CAVITY: No masses or inflammatory changes. No free fluid or peritoneal masses. APPENDIX: Not identified ABDOMINAL WALL: No masses. No hernias. PELVIS: No mass or free fluid. Normal bladder. Normal size postmenopausal female pelvic organs BONES: No significant or acute findings. OTHER: No other significant finding. IMPRESSION: No CT evidence of recurrent lymphoma over the chest abdomen or pelvis TECHNICAL DOCUMENTATION: JOB ID: [id number] Quality ID # [id number]: Final reports with documentation of one or more dose reduction techniques (e.g., Au tomated exposure control, adjustment of the mA and/or kV according to patient size, use of iterative reconstruction technique) 2010 [employer]- All Rights Reserved Reading location - IP/workstation name: [facility]-[email or web address]
--- NOTE | 2018-03-03 13:21 | RADIOLOGY REPORT (SQ) ---
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 No oral contrast. Images reviewed with lung, soft tissue, and bone windows. Reconstructed coronal and sagittal MPR images reviewed. Delayed images for evaluation of the urinary system also acquired. All images stored on PACS. All CT scanners at this facility use dose modulation, iterative reconstruction, and/or weight based d osing when appropriate to reduce radiation dose to as low as reasonably achievable (ALARA). [facility]: Dose Right [facility]: CareDose [facility]: Dose Right [facility]: Teradose 4D [facility]: [employer] CONTRAST TYPE AND DOSE: contrast/concentration: Isovue 350.00 mg/ml; Total Contrast Delivered: 79.0 ml; Total Saline Delivered: 68.0 ml RENAL FUNCTION: Creatinine 0.7 RADIATION DOSE: CT Rad equipment meets quality standard of care and radiation dose reduction techniq ues were employed. CTDIvol: 5.2 - 6.4 mGy. DLP: 817 mGy-cm.. LIMITATIONS: None. FINDINGS: LOWER CHEST: Small hiatal hernia. Please see CT chest same date LIVER: Normal size. No masses. No dilated ducts. SPLEEN: Normal size. No focal lesions. PANCREAS: No masses. No significant calcifications. No adjacent inflammation or peripancreatic fluid collections. Pancreatic duct not dilated. GALLBLADDER: No identified stones by CT criteria. No inflammatory changes to suggest cholecystitis. ADRENAL GLANDS: No significant masses or asymmetry. RIGHT KIDNEY AND URETER: No solid masses. 5.5 x 4 cm right upper pole renal cortical cyst. No signi ficant calcifications. No hydronephrosis or hydroureter. LEFT KIDNEY AND URETER: No solid masses. No significant calcifications. No hydronephrosis or hydr oureter. AORTA AND VESSELS: No aneurysm. No dissection. Renal arteries, SMA, celiac without stenosis. RETROPERITONEUM: No retroperitoneal adenopathy, hemorrhage or masses. Specifically, no mesenteric ad enopathy is present. BOWEL AND PERITONEAL CAVITY: No masses or inflammatory changes. No free fluid or peritoneal masses. APPENDIX: Not identified. No right lower quadrant inflammatory change PELVIS: No mass. No free fluid. Normal bladder. Normal size female pelvic organs. ABDOMINAL WALL: No masses. No hernias. BONES: No significant or acute findings. OTHER: No other significant finding. IMPRESSION: No CT evidence of recurrent lymphoma over the abdomen or pelvis TECHNICAL DOCUMENTATION: JOB ID: [id number] Quality ID # [id number]: Final reports with documentation of one or more dose reduction techniques (e.g., Au tomated exposure control, adjustment of the mA and/or kV according to patient size, use of iterative reconstruction technique) 2010 [employer]- All Rights Reserved Reading location - IP/workstation name: [email or web address]
== END ==
LOC: RAD 09:05
PROVIDERS: ATTEND Internal Medicine
DX: C85.91 Non-Hodgkin lymphoma, unspecified, lymph nodes of head, face, and neck (principal); C81.78 Other Hodgkin lymphoma, lymph nodes of multiple sites
CPT/HCPCS: 71260; 74177

== ENCOUNTER 2018-03-05 10:41 | Outpatient (CLI) | payer MEDICARE ==
[~2018-03-05 10:41] MED LIST changes: +DEXTROSE 5% IV PRN; -DEXTROSE IV PRN; +WATER IV PRN; +[UNRECOGNIZED DRUG - OTHER] IV PRN; -[UNRECOGNIZED DRUG - OTHER] IV PRN
[2018-03-05] MEDS ORDERED: [UNRECOGNIZED DRUG - OTHER] IV PRN (11:27)
[2018-03-05] MEDS ORDERED: DEXTROSE 5% IV PRN (11:27)
[2018-03-05] MEDS ORDERED: WATER IV PRN (11:27)
== END 2018-03-05 13:51 | disposition home or self-care (01) ==
LOC: 5TH 10:41 → II 10:41
PROVIDERS: ATTEND Internal Medicine
PROC: 3E0330M Introduction of Antineoplastic, Monoclonal Antibody, into Peripheral Vein, Percutaneous Approach (ICD-10-PCS; principal; 2018-03-05)
PROC: 3E033GC Introduction of Other Therapeutic Substance into Peripheral Vein, Percutaneous Approach (ICD-10-PCS; 2018-03-05)
DX: Z51.11 Encounter for antineoplastic chemotherapy (principal); C85.91 Non-Hodgkin lymphoma, unspecified, lymph nodes of head, face, and neck; D36.0 Benign neoplasm of lymph nodes; D47.Z2 Castleman disease
CPT/HCPCS: 96413; 96367; A9270; J1200; J7060; J2860

== ENCOUNTER 2018-03-11 21:13 | Emergency (ER) | payer MEDICARE ==
[2018-03-11] MEDS ORDERED: FAMOTIDINE 20 MG TABLET PO ONE (22:12)
[2018-03-11] MEDS ORDERED: DIPHENHYDRAMINE HCL 50 MG CAPSULE PO ONE (22:12)
[2018-03-11] MEDS ORDERED: PREDNISONE 20 MG TABLET PO ONE (22:12)
--- NOTE | 2018-03-11 22:13 | ER Document Report ---
ED Medical Screen (RME) - General Chief Complaint: Allergic Reaction Stated Complaint: ITCHING/POSSIBLE ALLERGIC REACTION Time Seen by Provider: 03/11/18 22:11 Mode of Arrival: Ambulatory Information source: Patient Notes: Patient is a 78-year-old female who presents to the emergency department with chief complaint of itching all over. 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 She states that she usually has Benadryl given prior to the infusion however this time she thinks it did not give her any Benadryl. She reports that she started having generalized itching on . She denies any difficulty breathing, difficulty breathing or swallowing. Patient is speaking in complete sentences with no acute distress noted. TRAVEL OUTSIDE OF THE [place] IN LAST 30 DAYS: No - Related Data Allergies/Adverse Reactions: Sulfa (Sulfonamide Antibiotics) Allergy (Verified 05/11/12 08:11) Past Medical History - Past Medical History Cardiac Medical History: Reports: Hx Hypertension Neurological Medical History: Denies: Hx Seizures Musculoskeltal Medical History: Reports Hx Arthritis Past Surgical History: Denies: Hx Hysterectomy - Immunizations Hx Diphtheria, Pertussis, Tetanus Vaccination: Yes Physical Exam - Vital signs Vitals: Temp Pulse Resp BP Pulse Ox 98.4 F 83 18 126/65 H 94 03/11/18 21:34 03/11/18 21:34 03/11/18 21:34 03/11/18 21:34 03/11/18 21:34 Course - Vital Signs Vital signs: Temp Pulse Resp BP Pulse Ox 98.4 F 83 18 126/65 H 94 03/11/18 21:34 03/11/18 21:34 03/11/18 21:34 03/11/18 21:34 03/11/18 21:34 Doctor's Discharge - Discharge Referrals: ALEXANDER KINGSTON MD [Primary Care Provider] - Follow up as needed
--- NOTE | 2018-03-11 22:54 | ER Document Report ---
ED General - General Chief Complaint: Allergic Reaction Stated Complaint: ITCHING/POSSIBLE ALLERGIC REACTION Time Seen by Provider: 03/11/18 22:11 Mode of Arrival: Ambulatory Notes: Patient is a 78-year-old female who presents to the emergency department with chief complaint of itching all over. 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 She states that she usually has Benadryl given prior to the infusion however this time she thinks it did not give her any Benadryl. She reports that she started having generalized itching on . She denies any difficulty breathing, difficulty breathing or swallowing. Patient is speaking in complete sentences with no acute distress noted. TRAVEL OUTSIDE OF THE [place] IN LAST 30 DAYS: No - Related Data Allergies/Adverse Reactions: Sulfa (Sulfonamide Antibiotics) Allergy (Verified 05/11/12 08:11) Past Medical History - General Information source: Patient - Social History Smoking Status: Never Smoker Frequency of alcohol use: None Drug Abuse: None Family History: Reviewed & Not Pertinent - Past Medical History Cardiac Medical History: Reports: Hx Hypertension Neurological Medical History: Denies: Hx Seizures Musculoskeletal Medical History: Reports Hx Arthritis Past Surgical History: Denies: Hx Hysterectomy - Immunizations Hx Diphtheria, Pertussis, Tetanus Vaccination: Yes Hx Pneumococcal Vaccination: 04/18/14 Review of Systems - Review of Systems Skin: See HPI -: Yes All other systems reviewed and negative Physical Exam - Vital signs Vitals: Temp Pulse Resp BP Pulse Ox 98.4 F 83 18 126/65 H 94 03/11/18 21:34 03/11/18 21:34 03/11/18 21:34 03/11/18 21:34 03/11/18 21:34 - Notes Notes: PHYSICAL EXAMINATION: GENERAL: Well-appearing, well-nourished and in no acute distress. HEAD: Atraumatic, normocephalic. EYES: Pupils equal round and reactive to light, extraocular movements intact, conjunctiva are normal. ENT: Nares patent, oropharynx clear without exudates. Moist mucous membranes. NECK: Normal range of motion, supple without lymphadenopathy LUNGS: Breath sounds clear to auscultation bilaterally and equal. No wheezes rales or rhonchi. HEART: Regular rate and rhythm without murmurs ABDOMEN: Soft, nontender, nondistended abdomen. No guarding, no rebound. No masses appreciated. Female : deferred Musculoskeletal: Normal range of motion, no pitting or edema. No cyanosis. NEUROLOGICAL: Cranial nerves grossly intact. Normal speech, normal gait. Normal sensory, motor exams PSYCH: Normal mood, normal affect. SKIN: Warm, Dry, normal turgor, no rashes or lesions noted. Scattered erythema were patient has been itching consistently. Course - Re-evaluation Re-evalutation: Patient was given Benadryl, Pepcid and prednisone p.o. She was monitored in the triage area and after approximately 1 hour she reports that her symptoms have resolved. She does not have any hives. She does not have any shortness of breath or difficulty swallowing. She has a follow-up appointment in 4 days with her primary care, she will be discharged home in stable condition with a ED return precautions. - Vital Signs Vital signs: Temp Pulse Resp BP Pulse Ox 98.4 F 83 18 130/69 H 99 03/11/18 23:11 03/11/18 23:11 03/11/18 21:34 03/11/18 23:11 03/11/18 23:11 Discharge - Discharge Clinical Impression: Pruritus Condition: Stable Disposition: HOME, SELF-CARE Additional Instructions: Acute Allergic Reaction Your symptoms are POSSIBLY due to an allergic reaction. Allergy can cause hives, swelling of the hands, feet, and face, hoarseness, and difficulty swallowing or breathing. It may be due to exposure to medication, animal dander, foods, infection, or insect bites. Medication is a common cause, even when prior use of this same medication caused no problems. Acute treatment may include adrenalin and antihistamines. Usually, the specific allergic agent can't be identified unless repeated episodes occur. Home treatment includes the following: (1) Stop any suspicious medications. This will be discussed with you. (2) Oral antihistamines for the next four to five days. Example, diphenhydramine (Benadryl) every four hours. (3) You may also use cimetidine (Tagamet), ranitidine (Zantac), or famotidine (Pepcid) every four hours if diphenhydramine is not controlling itching and hives. (4) Avoid aspirin until the hives completely disappear. (5) Avoid hot bahs or showers until the hives are completely gone. Call the doctor if faintness, difficulty swallowing, tightness in the chest, or wheezing occurs. Please take medications as prescribed. You may also take Benadryl 25-50 mg every 6 hours. Please take note that the prednisone may make you have elevated blood sugars over the next couple of days, do not let this alarm you. Continue all other medications as prescribed. Please follow-up with Dr. ROLLE as originally planned. Prescriptions: Famotidine [Pepcid 40 mg Tablet] 40 mg PO BID #10 tablet Prednisone [Deltasone 20 mg Tablet] 3 tab PO DAILY 4 Days #12 tablet Referrals: ALEXANDER KINGSTON MD [Primary Care Provider] - Follow up as needed
[2018-03-11 23:12] VITALS: BP 130/69
== END 2018-03-11 23:12 | disposition home or self-care (01) ==
LOC: ER 21:13
DX: L29.9 Pruritus, unspecified (principal); I10 Essential (primary) hypertension; Z88.2 Allergy status to sulfonamides
CPT/HCPCS: 99283; A9270 ×3; J7512

== ENCOUNTER 2018-03-26 12:14 | Outpatient (CLI) | payer MEDICARE ==
[~2018-03-26 12:14] MED LIST changes: +DIPHENHYDRAMINE HCL 50 MG in NORMAL SALINE 50 ML INJ PRN; +[UNRECOGNIZED DRUG - OTHER] IV PRN; -[UNRECOGNIZED DRUG - OTHER] IV PRN
[2018-03-26 12:50] VITALS: BP 125/59
[2018-03-26 14:33] LABS: ABSOLUTE EOSINOPHILS # (AUTO) 0.1 10^3/uL (0.0-0.6); ABSOLUTE LYMPHOCYTES (AUTO) 1.3 10^3/uL (0.5-4.7); ABSOLUTE MONOCYTES (AUTO) 0.5 10^3/uL (0.1-1.4); ABSOLUTE NEUT (AUTO) 2.4 10^3/uL (1.7-8.2); BASOPHILS % (AUTO) 0.5 % (0-2); EOSINOPHILS % (AUTO) 1.7 % (0-6); HEMATOCRIT 34.1 % (36.0-47.0); HEMOGLOBIN 11.6 g/dL (12.0-15.5); MEAN CORPUSCULAR HEMOGLOBIN 33.4 pg (27.0-33.4); MEAN CORPUSCULAR HGB CONC 34.1 g/dL (32.0-36.0); MEAN CORPUSCULAR VOLUME 98 fl (80-97); MONOCYTES % (AUTO) 11.1 % (3-13); PLATELET COUNT 143 10^3/uL (150-450); RED BLOOD COUNT 3.49 10^6/uL (3.72-5.28); RED CELL DISTRIBUTION WIDTH 12.5 % (11.5-14.0); SEGMENTED NEUTROPHILS % (AUTO) 56.7 % (42-78); TOTAL CELLS COUNTED % (AUTO) 100 %; WHITE BLOOD COUNT 4.3 10^3/uL (4.0-10.5)
[2018-03-26] MEDS ORDERED: DEXTROSE 5% IV PRN (15:03)
[2018-03-26] MEDS ORDERED: WATER IV PRN (15:03)
[2018-03-26] MEDS ORDERED: [UNRECOGNIZED DRUG - OTHER] IV PRN (15:03)
== END 2018-03-26 17:19 | disposition home or self-care (01) ==
LOC: II 12:14 → 5TH 12:39 → II 17:19
PROVIDERS: ATTEND Internal Medicine
PROC: 3E0330M Introduction of Antineoplastic, Monoclonal Antibody, into Peripheral Vein, Percutaneous Approach (ICD-10-PCS; principal; 2018-03-26)
PROC: 3E033GC Introduction of Other Therapeutic Substance into Peripheral Vein, Percutaneous Approach (ICD-10-PCS; 2018-03-26)
DX: Z51.11 Encounter for antineoplastic chemotherapy (principal); C85.91 Non-Hodgkin lymphoma, unspecified, lymph nodes of head, face, and neck; D47.Z2 Castleman disease; Z79.899 Other long term (current) drug therapy
CPT/HCPCS: 36415; 85025; 96413; 96367; A9270; J1200; J7060; J2860

== ENCOUNTER 2018-04-16 09:43 | Outpatient (CLI) | payer MEDICARE ==
[~2018-04-16 09:43] MED LIST changes: +DEXAMETHASONE SOD PHOSPHATE 10 MG in NORMAL SALINE 50 ML IV PRN; -DIPHENHYDRAMINE HCL 50 MG in NORMAL SALINE 50 ML INJ PRN; +[UNRECOGNIZED DRUG - OTHER] IV PRN; -[UNRECOGNIZED DRUG - OTHER] IV PRN
[2018-04-16 10:39] VITALS: BP 149/69
== END 2018-04-16 14:05 | disposition home or self-care (01) ==
LOC: II 09:43 → 5TH 09:53 → II 14:05
PROVIDERS: ATTEND Internal Medicine
PROC: 3E0330M Introduction of Antineoplastic, Monoclonal Antibody, into Peripheral Vein, Percutaneous Approach (ICD-10-PCS; principal; 2018-04-16)
PROC: 3E0333Z Introduction of Anti-inflammatory into Peripheral Vein, Percutaneous Approach (ICD-10-PCS; 2018-04-16)
PROC: 3E033GC Introduction of Other Therapeutic Substance into Peripheral Vein, Percutaneous Approach (ICD-10-PCS; 2018-04-16)
DX: Z51.11 Encounter for antineoplastic chemotherapy (principal); C85.91 Non-Hodgkin lymphoma, unspecified, lymph nodes of head, face, and neck
CPT/HCPCS: 96413; 96367; A9270; J1200; J7060; J1100; J2860

== ENCOUNTER 2018-05-07 10:08 | Outpatient (CLI) | payer MEDICARE ==
[~2018-05-07 10:08] MED LIST changes: +[UNRECOGNIZED DRUG - OTHER] IV PRN; -[UNRECOGNIZED DRUG - OTHER] IV PRN
[2018-05-07 12:22] VITALS: BP 165/74
== END 2018-05-07 14:11 | disposition home or self-care (01) ==
LOC: II 10:08 → 5TH 10:12 → II 14:11
PROVIDERS: ATTEND Internal Medicine
PROC: 3E0330M Introduction of Antineoplastic, Monoclonal Antibody, into Peripheral Vein, Percutaneous Approach (ICD-10-PCS; principal; 2018-05-07)
PROC: 3E033GC Introduction of Other Therapeutic Substance into Peripheral Vein, Percutaneous Approach (ICD-10-PCS; 2018-05-07)
PROC: 3E0333Z Introduction of Anti-inflammatory into Peripheral Vein, Percutaneous Approach (ICD-10-PCS; 2018-05-07)
DX: Z51.11 Encounter for antineoplastic chemotherapy (principal); C85.91 Non-Hodgkin lymphoma, unspecified, lymph nodes of head, face, and neck
CPT/HCPCS: 96413; 96367; A9270; J1200; J7060; J1100; J2860

== ENCOUNTER 2018-05-28 09:08 | Outpatient (CLI) | payer MEDICARE ==
[~2018-05-28 09:08] MED LIST changes: -DEXTROSE 5% IV PRN; +DEXTROSE IV PRN; -WATER IV PRN; +[UNRECOGNIZED DRUG - OTHER] IV PRN; -[UNRECOGNIZED DRUG - OTHER] IV PRN
[2018-05-28 09:35] VITALS: BP 157/65
== END 2018-05-28 11:57 | disposition home or self-care (01) ==
LOC: II 09:08 → 5TH 09:20 → II 11:57
PROVIDERS: ATTEND Internal Medicine
PROC: 3E0330M Introduction of Antineoplastic, Monoclonal Antibody, into Peripheral Vein, Percutaneous Approach (ICD-10-PCS; principal; 2018-05-28)
PROC: 3E0333Z Introduction of Anti-inflammatory into Peripheral Vein, Percutaneous Approach (ICD-10-PCS; 2018-05-28)
PROC: 3E033GC Introduction of Other Therapeutic Substance into Peripheral Vein, Percutaneous Approach (ICD-10-PCS; 2018-05-28)
DX: Z51.11 Encounter for antineoplastic chemotherapy (principal); C85.91 Non-Hodgkin lymphoma, unspecified, lymph nodes of head, face, and neck
CPT/HCPCS: 96413; 96365; 96367; A9270; J1200; J7060; J1100; J2860

== ENCOUNTER 2018-06-18 09:15 | Outpatient (CLI) | payer MEDICARE ==
[~2018-06-18 09:15] MED LIST changes: -DEXTROSE IV PRN; +[UNRECOGNIZED DRUG - OTHER] IV PRN; -[UNRECOGNIZED DRUG - OTHER] IV PRN
[2018-06-18 10:40] VITALS: BP 143/59
== END 2018-06-18 14:13 | disposition home or self-care (01) ==
LOC: II 09:15 → 5TH 09:38 → II 14:13
PROVIDERS: ATTEND Internal Medicine
PROC: 3E0330M Introduction of Antineoplastic, Monoclonal Antibody, into Peripheral Vein, Percutaneous Approach (ICD-10-PCS; principal; 2018-06-18)
PROC: 3E0333Z Introduction of Anti-inflammatory into Peripheral Vein, Percutaneous Approach (ICD-10-PCS; 2018-06-18)
PROC: 3E033GC Introduction of Other Therapeutic Substance into Peripheral Vein, Percutaneous Approach (ICD-10-PCS; 2018-06-18)
DX: Z51.11 Encounter for antineoplastic chemotherapy (principal); C85.91 Non-Hodgkin lymphoma, unspecified, lymph nodes of head, face, and neck
CPT/HCPCS: 96413; 96367; A9270; J1200; J7060; J1100; J2860

== ENCOUNTER 2018-07-09 09:52 | Outpatient (CLI) | payer MEDICARE ==
[~2018-07-09 09:52] MED LIST changes: +DEXAMETHASONE 10 MG in NS 50 ML IV PRN; -DEXAMETHASONE SOD PHOSPHATE 10 MG in NORMAL SALINE 50 ML IV PRN; +DIPHENHYDRAMINE 50 MG in NS 50 ML IV PRN; -DIPHENHYDRAMINE HCL 50 MG in NORMAL SALINE 50 ML IV PRN
[2018-07-09] MEDS ORDERED: WATER IV PRN (10:06)
[2018-07-09] MEDS ORDERED: [UNRECOGNIZED DRUG - OTHER] IV PRN (10:06)
[2018-07-09] MEDS ORDERED: DEXTROSE 5% IV PRN (10:06)
[2018-07-09 10:18] VITALS: BP 150/70
== END 2018-07-09 12:56 | disposition home or self-care (01) ==
LOC: II 09:52 → 5TH 10:22 → II 12:56
PROVIDERS: ATTEND Internal Medicine
PROC: 3E0330M Introduction of Antineoplastic, Monoclonal Antibody, into Peripheral Vein, Percutaneous Approach (ICD-10-PCS; principal; 2018-07-09)
PROC: 3E0333Z Introduction of Anti-inflammatory into Peripheral Vein, Percutaneous Approach (ICD-10-PCS; 2018-07-09)
PROC: 3E033GC Introduction of Other Therapeutic Substance into Peripheral Vein, Percutaneous Approach (ICD-10-PCS; 2018-07-09)
DX: Z51.11 Encounter for antineoplastic chemotherapy (principal); C85.91 Non-Hodgkin lymphoma, unspecified, lymph nodes of head, face, and neck; D38.0 Neoplasm of uncertain behavior of larynx; D47.Z2 Castleman disease
CPT/HCPCS: 96413; 96365; 96366; A9270; J1200; J7060; J1100; J2860; 96367

== ENCOUNTER 2018-07-30 09:34 | Outpatient (CLI) | payer MEDICARE ==
[~2018-07-30 09:34] MED LIST changes: +DEXTROSE IV PRN; +[UNRECOGNIZED DRUG - OTHER] IV PRN; -[UNRECOGNIZED DRUG - OTHER] IV PRN
[2018-07-30 10:49] VITALS: BP 145/67
== END 2018-07-30 13:43 | disposition home or self-care (01) ==
LOC: II 09:34 → 5TH 09:35 → II 13:43
PROVIDERS: ATTEND Internal Medicine
PROC: 3E0330M Introduction of Antineoplastic, Monoclonal Antibody, into Peripheral Vein, Percutaneous Approach (ICD-10-PCS; principal; 2018-07-30)
PROC: 3E0333Z Introduction of Anti-inflammatory into Peripheral Vein, Percutaneous Approach (ICD-10-PCS; 2018-07-30)
PROC: 3E033GC Introduction of Other Therapeutic Substance into Peripheral Vein, Percutaneous Approach (ICD-10-PCS; 2018-07-30)
DX: Z51.11 Encounter for antineoplastic chemotherapy (principal); C85.91 Non-Hodgkin lymphoma, unspecified, lymph nodes of head, face, and neck
CPT/HCPCS: 96413; 96365; 96366; A9270; J1200; J7060; J1100; J2860; 96367

== ENCOUNTER 2018-08-20 09:00 | Outpatient (CLI) | payer MEDICARE ==
[~2018-08-20 09:00] MED LIST changes: -DEXAMETHASONE 10 MG in NS 50 ML IV PRN; +DEXAMETHASONE SOD PHOSPHATE 10 MG in NORMAL SALINE 50 ML IV PRN; -DIPHENHYDRAMINE 50 MG in NS 50 ML IV PRN; +DIPHENHYDRAMINE HCL 50 MG in NORMAL SALINE 50 ML IV PRN; +[UNRECOGNIZED DRUG - OTHER] IV PRN; -[UNRECOGNIZED DRUG - OTHER] IV PRN
[2018-08-20 09:38] VITALS: BP 120/89
== END 2018-08-20 12:19 | disposition home or self-care (01) ==
LOC: II 09:00 → 5TH 09:00 → II 12:19
PROVIDERS: ATTEND Internal Medicine
PROC: 3E0330M Introduction of Antineoplastic, Monoclonal Antibody, into Peripheral Vein, Percutaneous Approach (ICD-10-PCS; principal; 2018-08-20)
PROC: 3E0333Z Introduction of Anti-inflammatory into Peripheral Vein, Percutaneous Approach (ICD-10-PCS; 2018-08-20)
PROC: 3E033GC Introduction of Other Therapeutic Substance into Peripheral Vein, Percutaneous Approach (ICD-10-PCS; 2018-08-20)
DX: Z51.11 Encounter for antineoplastic chemotherapy (principal); C85.91 Non-Hodgkin lymphoma, unspecified, lymph nodes of head, face, and neck
CPT/HCPCS: 96413; 96367; A9270; J1200; J7060; J1100; J2860

== ENCOUNTER 2018-09-10 08:55 | Outpatient (CLI) | payer MEDICARE ==
[~2018-09-10 08:55] MED LIST changes: +DEXAMETHASONE 10 MG in NS 50 ML IV PRN; -DEXAMETHASONE SOD PHOSPHATE 10 MG in NORMAL SALINE 50 ML IV PRN; +DEXTROSE 5% IV PRN; -DEXTROSE IV PRN; +DIPHENHYDRAMINE 50 MG in NS 50 ML IV PRN; -DIPHENHYDRAMINE HCL 50 MG in NORMAL SALINE 50 ML IV PRN; +WATER IV PRN; +[UNRECOGNIZED DRUG - OTHER] IV PRN; -[UNRECOGNIZED DRUG - OTHER] IV PRN
[2018-09-10 09:11] VITALS: BP 142/69
== END 2018-09-10 11:41 | disposition home or self-care (01) ==
LOC: II 08:55 → 5TH 08:58 → II 11:41
PROVIDERS: ATTEND Internal Medicine
PROC: 3E0330M Introduction of Antineoplastic, Monoclonal Antibody, into Peripheral Vein, Percutaneous Approach (ICD-10-PCS; principal; 2018-09-10)
PROC: 3E0333Z Introduction of Anti-inflammatory into Peripheral Vein, Percutaneous Approach (ICD-10-PCS; 2018-09-10)
PROC: 3E033GC Introduction of Other Therapeutic Substance into Peripheral Vein, Percutaneous Approach (ICD-10-PCS; 2018-09-10)
DX: Z51.11 Encounter for antineoplastic chemotherapy (principal); C85.91 Non-Hodgkin lymphoma, unspecified, lymph nodes of head, face, and neck
CPT/HCPCS: 96413; 96367; A9270; J1200; J7060; J1100; J2860; 96360

== ENCOUNTER 2018-10-01 09:14 | Outpatient (CLI) | payer MEDICARE ==
[~2018-10-01 09:14] MED LIST changes: -DEXAMETHASONE 10 MG in NS 50 ML IV PRN; +DEXAMETHASONE SOD PHOSPHATE 10 MG in NORMAL SALINE 50 ML IV PRN; -DEXTROSE 5% IV PRN; -DIPHENHYDRAMINE 50 MG in NS 50 ML IV PRN; +DIPHENHYDRAMINE HCL 50 MG in NORMAL SALINE 50 ML IV PRN; -WATER IV PRN; +[UNRECOGNIZED DRUG - OTHER] IV PRN; -[UNRECOGNIZED DRUG - OTHER] IV PRN
[2018-10-01 11:07] VITALS: BP 141/65
== END 2018-10-01 12:26 | disposition home or self-care (01) ==
LOC: II 09:14 → 5TH 09:15 → II 12:26
PROVIDERS: ATTEND Internal Medicine
PROC: 3E0330M Introduction of Antineoplastic, Monoclonal Antibody, into Peripheral Vein, Percutaneous Approach (ICD-10-PCS; principal; 2018-10-01)
PROC: 3E0333Z Introduction of Anti-inflammatory into Peripheral Vein, Percutaneous Approach (ICD-10-PCS; 2018-10-01)
PROC: 3E033NZ Introduction of Analgesics, Hypnotics, Sedatives into Peripheral Vein, Percutaneous Approach (ICD-10-PCS; 2018-10-01)
DX: Z51.11 Encounter for antineoplastic chemotherapy (principal); C85.91 Non-Hodgkin lymphoma, unspecified, lymph nodes of head, face, and neck; D36.0 Benign neoplasm of lymph nodes
CPT/HCPCS: 96413; 96367; A9270; J1200; J7060; J1100; J2860

== ENCOUNTER 2018-10-22 09:51 | Outpatient (CLI) | payer MEDICARE ==
[~2018-10-22 09:51] MED LIST changes: +DEXAMETHASONE 10 MG in NS 50 ML IV PRN; -DEXAMETHASONE SOD PHOSPHATE 10 MG in NORMAL SALINE 50 ML IV PRN; +DEXTROSE 5% IV PRN; +DIPHENHYDRAMINE 50 MG in NS 50 ML IV PRN; -DIPHENHYDRAMINE HCL 50 MG in NORMAL SALINE 50 ML IV PRN; +WATER IV PRN; +[UNRECOGNIZED DRUG - OTHER] IV PRN; -[UNRECOGNIZED DRUG - OTHER] IV PRN
[2018-10-22 10:03] VITALS: BP 135/60
== END 2018-10-22 12:28 | disposition home or self-care (01) ==
LOC: II 09:51 → 5TH 10:02 → II 12:28
PROVIDERS: ATTEND Internal Medicine
PROC: 3E0330M Introduction of Antineoplastic, Monoclonal Antibody, into Peripheral Vein, Percutaneous Approach (ICD-10-PCS; principal; 2018-10-22)
PROC: 3E0333Z Introduction of Anti-inflammatory into Peripheral Vein, Percutaneous Approach (ICD-10-PCS; 2018-10-22)
PROC: 3E033GC Introduction of Other Therapeutic Substance into Peripheral Vein, Percutaneous Approach (ICD-10-PCS; 2018-10-22)
DX: Z51.11 Encounter for antineoplastic chemotherapy (principal); C85.91 Non-Hodgkin lymphoma, unspecified, lymph nodes of head, face, and neck
CPT/HCPCS: 96413; 96366; A9270; J1200; J7060; J1100; J2860; 96367

== ENCOUNTER → 2018-11-02 | Outpatient (CLI) | payer MEDICARE ==
--- NOTE | 2018-11-03 09:23 | RADIOLOGY REPORT (SQ) ---
EXAM DESCRIPTION: PET CT SKULL/THIGH COMPLETED DATE/TIME: 11/02/2018 9:47 pm REASON FOR STUDY: (C85.91)NON-HODGKIN LYMPHOMA, UNSP, NODES OF HEAD, FACE, AND NECK C85.91 NON-HODG KIN LYMPHOMA, UNSP, NODES OF HEAD, FACE, AND COMPARISON: 09/29/2017 RADIONUCLIDE AND DOSE: 11.6 mCi F18 FDG The route of agent administration: Intravenous FASTING BLOOD SUGAR: 118 mg/dl CONTRAST TYPE AND DOSE: No CT contrast given. TECHNIQUE: Blood glucose level was verified. Above dose of FDG was injected intravenously. 2-D seg mented attenuation correction images were obtained from the base of the skull to the midthighs. Nonc ontrast CT images were obtained for attenuation correction and fusion with emission images. CT image s were performed without oral or intravenous contrast and are not sensitive for parenchymal lesions. A series of overlapping emission PET images were obtained. Images reviewed and manipulated at [facility] work station by the radiologist. Images stored on PACS. LIMITATIONS: None. FINDINGS: HEAD AND NECK: No areas of abnormal metabolic activity in the soft tissues of the head and neck. CHEST: Hypermetabolic level 4R node measuring 12 mm and 3.0 SUV. ABDOMEN AND PELVIS: No areas of abnormal metabolic activity in the abdomen or pelvis. Expected physi ologic activity is present in the genitourinary system and bowel. PROXIMAL LOWER EXTREMITIES: No areas of abnormal metabolic activity in the soft tissues of the lower extremities. BONES: No abnormal metabolic activity in the visualized skeleton. ADDITIONAL CT FINDINGS: No significant change. No acute findings. OTHER: Blood pool 1.9 SUV. Liver background 2.4 SUV. IMPRESSION: Small hypermetabolic level 4 node. TECHNICAL DOCUMENTATION: JOB ID: [id number] [employer]- All Rights Reserved Reading location - IP/workstation name: [email or web address]
== END ==
LOC: RAD 15:52
PROVIDERS: ATTEND Physician Assistant Medical
DX: C85.91 Non-Hodgkin lymphoma, unspecified, lymph nodes of head, face, and neck (principal)
CPT/HCPCS: 78815; A9552

== ENCOUNTER 2018-11-12 10:17 | Outpatient (CLI) | payer MEDICARE ==
[~2018-11-12 10:17] MED LIST changes: -DEXTROSE 5% IV PRN; +DEXTROSE IV PRN; -WATER IV PRN; +[UNRECOGNIZED DRUG - OTHER] IV PRN; -[UNRECOGNIZED DRUG - OTHER] IV PRN
[2018-11-12 10:31] VITALS: BP 145/58
== END 2018-11-12 13:21 | disposition home or self-care (01) ==
LOC: II 10:17 → 5TH 10:19 → II 13:21
PROVIDERS: ATTEND Internal Medicine
PROC: 3E0330M Introduction of Antineoplastic, Monoclonal Antibody, into Peripheral Vein, Percutaneous Approach (ICD-10-PCS; principal; 2018-11-12)
PROC: 3E0333Z Introduction of Anti-inflammatory into Peripheral Vein, Percutaneous Approach (ICD-10-PCS; 2018-11-12)
PROC: 3E033GC Introduction of Other Therapeutic Substance into Peripheral Vein, Percutaneous Approach (ICD-10-PCS; 2018-11-12)
DX: Z51.11 Encounter for antineoplastic chemotherapy (principal); C85.91 Non-Hodgkin lymphoma, unspecified, lymph nodes of head, face, and neck
CPT/HCPCS: 96413; 96367; A9270; J1200; J7060; J1100; J2860

== ENCOUNTER 2018-12-03 09:26 | Outpatient (CLI) | payer MEDICARE ==
[~2018-12-03 09:26] MED LIST changes: -DEXAMETHASONE 10 MG in NS 50 ML IV PRN; +DEXAMETHASONE SOD PHOSPHATE 10 MG in NORMAL SALINE 50 ML IV PRN; +DEXTROSE 5% IV PRN; -DEXTROSE IV PRN; -DIPHENHYDRAMINE 50 MG in NS 50 ML IV PRN; +DIPHENHYDRAMINE HCL 50 MG in NORMAL SALINE 50 ML IV PRN; +WATER IV PRN; +[UNRECOGNIZED DRUG - OTHER] IV PRN; -[UNRECOGNIZED DRUG - OTHER] IV PRN
[2018-12-03 09:50] VITALS: BP 150/62
== END 2018-12-03 12:03 | disposition home or self-care (01) ==
LOC: II 09:26 → 5TH 09:30 → II 12:03
PROVIDERS: ATTEND Internal Medicine
PROC: 3E0330M Introduction of Antineoplastic, Monoclonal Antibody, into Peripheral Vein, Percutaneous Approach (ICD-10-PCS; principal; 2018-12-03)
PROC: 3E0333Z Introduction of Anti-inflammatory into Peripheral Vein, Percutaneous Approach (ICD-10-PCS; 2018-12-03)
PROC: 3E033GC Introduction of Other Therapeutic Substance into Peripheral Vein, Percutaneous Approach (ICD-10-PCS; 2018-12-03)
DX: Z51.11 Encounter for antineoplastic chemotherapy (principal); C85.91 Non-Hodgkin lymphoma, unspecified, lymph nodes of head, face, and neck; D36.0 Benign neoplasm of lymph nodes; D47.Z2 Castleman disease
CPT/HCPCS: 96413; 96367; A9270; J1200; J7060; J1100; J2860

== ENCOUNTER 2018-12-24 09:59 | Outpatient (CLI) | payer MEDICARE ==
[~2018-12-24 09:59] MED LIST changes: +DEXAMETHASONE 10 MG in NS 50 ML IV PRN; -DEXAMETHASONE SOD PHOSPHATE 10 MG in NORMAL SALINE 50 ML IV PRN; +DIPHENHYDRAMINE 50 MG in NS 50 ML IV PRN; -DIPHENHYDRAMINE HCL 50 MG in NORMAL SALINE 50 ML IV PRN; +[UNRECOGNIZED DRUG - OTHER] IV PRN; -[UNRECOGNIZED DRUG - OTHER] IV PRN
[2018-12-24 10:17] VITALS: BP 158/60
== END 2018-12-24 12:40 | disposition home or self-care (01) ==
LOC: II 09:59 → 5TH 10:01 → II 12:40
PROVIDERS: ATTEND Internal Medicine
PROC: 3E0330M Introduction of Antineoplastic, Monoclonal Antibody, into Peripheral Vein, Percutaneous Approach (ICD-10-PCS; principal; 2018-12-24)
PROC: 3E0333Z Introduction of Anti-inflammatory into Peripheral Vein, Percutaneous Approach (ICD-10-PCS; 2018-12-24)
PROC: 3E033GC Introduction of Other Therapeutic Substance into Peripheral Vein, Percutaneous Approach (ICD-10-PCS; 2018-12-24)
DX: Z51.11 Encounter for antineoplastic chemotherapy (principal); C85.91 Non-Hodgkin lymphoma, unspecified, lymph nodes of head, face, and neck
CPT/HCPCS: 96413; 96367; A9270; J1200; J7060; J1100; J2860

== ENCOUNTER 2019-01-14 09:45 | Outpatient (CLI) | payer MEDICARE ==
[~2019-01-14 09:45] MED LIST changes: -DEXAMETHASONE 10 MG in NS 50 ML IV PRN; +DEXAMETHASONE SOD PHOSPHATE 10 MG in NORMAL SALINE 50 ML IV PRN; -DIPHENHYDRAMINE 50 MG in NS 50 ML IV PRN; +DIPHENHYDRAMINE HCL 50 MG in NORMAL SALINE 50 ML IV PRN
[2019-01-14 10:12] VITALS: BP 151/72
== END 2019-01-14 13:13 | disposition home or self-care (01) ==
LOC: II 09:45 → 5TH 09:46 → II 13:13
PROVIDERS: ATTEND Internal Medicine
PROC: 3E0330M Introduction of Antineoplastic, Monoclonal Antibody, into Peripheral Vein, Percutaneous Approach (ICD-10-PCS; principal; 2019-01-14)
PROC: 3E0333Z Introduction of Anti-inflammatory into Peripheral Vein, Percutaneous Approach (ICD-10-PCS; 2019-01-14)
PROC: 3E033GC Introduction of Other Therapeutic Substance into Peripheral Vein, Percutaneous Approach (ICD-10-PCS; 2019-01-14)
DX: Z51.11 Encounter for antineoplastic chemotherapy (principal); C22.0 Liver cell carcinoma; C85.91 Non-Hodgkin lymphoma, unspecified, lymph nodes of head, face, and neck
CPT/HCPCS: 96413; 96367; A9270; J1200; J7060; J1100; J2860

== ENCOUNTER 2019-02-04 09:31 | Outpatient (CLI) | payer MEDICARE ==
[~2019-02-04 09:31] MED LIST changes: +[UNRECOGNIZED DRUG - OTHER] IV PRN; -[UNRECOGNIZED DRUG - OTHER] IV PRN
[2019-02-04 09:47] VITALS: BP 134/63
== END 2019-02-04 12:10 | disposition home or self-care (01) ==
LOC: II 09:31 → 5TH 09:34 → II 12:10
PROVIDERS: ATTEND Internal Medicine
PROC: 3E0330M Introduction of Antineoplastic, Monoclonal Antibody, into Peripheral Vein, Percutaneous Approach (ICD-10-PCS; principal; 2019-02-04)
PROC: 3E0333Z Introduction of Anti-inflammatory into Peripheral Vein, Percutaneous Approach (ICD-10-PCS; 2019-02-04)
PROC: 3E033GC Introduction of Other Therapeutic Substance into Peripheral Vein, Percutaneous Approach (ICD-10-PCS; 2019-02-04)
DX: Z51.11 Encounter for antineoplastic chemotherapy (principal); C85.91 Non-Hodgkin lymphoma, unspecified, lymph nodes of head, face, and neck
CPT/HCPCS: 96413; 96367; A9270; J1200; J7060; J1100; J2860

== ENCOUNTER → 2019-02-17 | Outpatient (CLI) | payer MEDICARE ==
--- NOTE | 2019-02-18 10:44 | RADIOLOGY REPORT (SQ) ---
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 RADIONUCLIDE AND DOSE: 10.35 mCi F18 FDG The route of agent administration: Intravenous FASTING BLOOD SUGAR: 128 mg/dl CONTRAST TYPE AND DOSE: No CT contrast given. TECHNIQUE: Blood glucose level was verified. Above dose of FDG was injected intravenously. 2-D seg mented attenuation correction images were obtained from the base of the skull to the midthighs. Nonc ontrast CT images were obtained for attenuation correction and fusion with emission images. CT image s were performed without oral or intravenous contrast and are not sensitive for parenchymal lesions. A series of overlapping emission PET images were obtained. Images reviewed and manipulated at [facility] work station by the radiologist. Images stored on PACS. LIMITATIONS: None. FINDINGS: HEAD AND NECK: Asymmetric focal uptake within the right pharyngeal recess (maximum SUV of 5.1) without a discernible anatomic correlate on CT. CHEST: Unchanged 12 mm right lower peritracheal lymph node image 64 of series 3) that demonstrates mi ld FDG uptake (maximum SUV of 3.5 (compared to 3 on the prior PET). ABDOMEN AND PELVIS: The liver demonstrates heterogeneous non focal FDG uptake with an average liver S UV of 2.6. There is expected physiologic activity throughout the gastrointestinal and genitourinary tracts. The subcutaneous lesion in the right lower quadrant that measures 4.1 x 1.5 cm a (image 130 of series 3) is stable in size and demonstrates no abnormal FDG uptake. No areas of abnormal metabol ic activity are identified in the abdomen and pelvis. PROXIMAL LOWER EXTREMITIES: No areas of abnormal metabolic activity in the soft tissues of the lower extremities. BONES: No areas of abnormal metabolic activity in the imaged axial and appendicular skeleton. ADDITIONAL CT FINDINGS: There is no enlarged cervical, supraclavicular or axillary adenopathy. The h eart is enlarged. There is no pericardial effusion. There patchy ground-glass opacities in the left upper, left lower or and right lower lobes. The morphology of the liver is non cirrhotic. The sple en is normal in size. There is no abnormality of the pancreas or adrenal glands. The gallbladder is present. There is a 5 x 5.9 cm water attenuation cyst that projects from the medial cortex of the r ight kidney. There is colonic diverticulosis without diverticulitis. There is no abnormality of the uterus and adnexa that is apparent on CT. OTHER: No other findings. IMPRESSION: 1. Unchanged enlarged right lower paratracheal lymph nodes that demonstrates minimal FDG uptake with a maximum SUV of 3.5 (for reference the average liver SUV equals 2.6). 2. Asymmetric focal uptake within the right pharyngeal recess (maximum SUV of 5.1) without a discern ible anatomic correlate on CT. Consider correlation with direct visualization of the area. TECHNICAL DOCUMENTATION: JOB ID: [id number] [employer]- All Rights Reserved Reading location - IP/workstation name: [email or web address]
== END ==
LOC: RAD 08:28
PROVIDERS: ATTEND Internal Medicine
DX: C85.91 Non-Hodgkin lymphoma, unspecified, lymph nodes of head, face, and neck (principal)
CPT/HCPCS: 78815; A9552

== ENCOUNTER 2019-02-25 09:51 | Outpatient (CLI) | payer MEDICARE ==
[~2019-02-25 09:51] MED LIST changes: +DEXAMETHASONE 10 MG in NS 50 ML IV PRN; -DEXAMETHASONE SOD PHOSPHATE 10 MG in NORMAL SALINE 50 ML IV PRN; +DIPHENHYDRAMINE 50 MG in NS 50 ML IV PRN; -DIPHENHYDRAMINE HCL 50 MG in NORMAL SALINE 50 ML IV PRN; +[UNRECOGNIZED DRUG - OTHER] IV PRN; -[UNRECOGNIZED DRUG - OTHER] IV PRN
[2019-02-25 10:06] VITALS: BP 147/75
== END 2019-02-25 12:46 | disposition home or self-care (01) ==
LOC: II 09:51 → 5TH 09:55 → II 12:46
PROVIDERS: ATTEND Internal Medicine
DX: Z51.11 Encounter for antineoplastic chemotherapy (principal); C85.91 Non-Hodgkin lymphoma, unspecified, lymph nodes of head, face, and neck
CPT/HCPCS: 96413; 96367; A9270; J1200; J7060; J1100; J2860

== ENCOUNTER 2019-02-27 08:47 | Day surgery (SDC) | payer MEDICARE ==
[~2019-02-27 08:47] MED LIST changes: -ACETAMINOPHEN 325 MG TABLET PO PRN; +BESIFLOXACIN HCL 0.6% OPH SUSP 5 ML BOTTLE OD PRN; +BUPIVACAINE HCL 0.75% INJ/PF (7.5 MG/1 ML) 10 ML SDV OD PRN; +CHONDR SU A NA/HYALUR INTRAOC KIT (SURGICARE) ONE; +CYCLOPENTOLATE 0.2%/PHENYLEPHRINE 1% OPH SOLN 2 ML OD PRN; -DEXAMETHASONE 10 MG in NS 50 ML IV PRN; -DEXTROSE 5% IV PRN; -DEXTROSE 5%-WATER 250 ML IV PRN; -DIPHENHYDRAMINE 50 MG in NS 50 ML IV PRN; +DORZOLAMIDE HCL 2%/TIMOLOL MALEAT 0.5% OPH SOLN 10 ML OD PRN; +EPINEPHRINE INJ/PF 1 MG/1 ML AMPULE ONE; +FENTANYL CITRATE INJ/PF 100 MCG/2 ML AMPUL ONE; +KETOROLAC TROMETHAMINE 0.45% 4 DROP/0.4 ML DROPERETTE OD PRN; +LIDOCAINE 1% INJ-PF (10 MG/ML) 30 ML SDV ONE; +LIDOCAINE 4% INJ/PF (40 MG/ML) 5 ML AMPUL OD PRN; +MIDAZOLAM 2 MG/2 ML INJ ONE; +ONDANSETRON HCL INJ/PF 4 MG/2 ML SDV ONE; +TETRACAINE HCL 0.5% OPH SOLN 4 ML OD PRN; +TROPICAMIDE 1% OPH SOLN 15 ML OD PRN; -WATER IV PRN; -[UNRECOGNIZED DRUG - OTHER] IV PRN
== END 2019-02-27 09:25 | disposition home or self-care (01) ==
LOC: SC 08:47
PROVIDERS: ATTEND Ophthalmology
DX: Z53.9 Procedure and treatment not carried out, unspecified reason (principal)
CPT/HCPCS: J0171; J2250; J2405; J3010; J3490

== ENCOUNTER 2019-03-17 10:25 | Day surgery (SDC) | payer MEDICARE ==
[2019-03-17] MEDS ORDERED: LIDOCAINE 4% INJ/PF (40 MG/ML) 5 ML AMPUL OD PRN (11:30)
[2019-03-17] MEDS ORDERED: KETOROLAC TROMETHAMINE 0.45% 4 DROP/0.4 ML DROPERETTE OD PRN (11:30)
[2019-03-17] MEDS ORDERED: BUPIVACAINE HCL 0.75% INJ/PF (7.5 MG/1 ML) 10 ML SDV OD PRN (11:30)
[2019-03-17] MEDS: TROPICAMIDE 1% OPH SOLN 15 ML OD PRN ×3 (11:42→12:02)
[2019-03-17] MEDS: BESIFLOXACIN HCL 0.6% OPH SUSP 5 ML BOTTLE OD PRN ×4 (11:42→13:01)
[2019-03-17] MEDS: CYCLOPENTOLATE 0.2%/PHENYLEPHRINE 1% OPH SOLN 2 ML OD PRN ×3 (11:42→12:02)
[2019-03-17] MEDS: TETRACAINE HCL 0.5% OPH SOLN 4 ML OD PRN ×3 (11:43→12:26)
[2019-03-17] MEDS ORDERED: FENTANYL CITRATE INJ/PF 100 MCG/2 ML AMPUL ONE (12:32)
[2019-03-17] MEDS ORDERED: MIDAZOLAM 2 MG/2 ML INJ ONE (12:32)
[2019-03-17] MEDS ORDERED: ONDANSETRON HCL INJ/PF 4 MG/2 ML SDV ONE (12:32)
[2019-03-17] MEDS: LIDOCAINE 1% INJ-PF (10 MG/ML) 30 ML SDV ONE ×2 (12:38→12:40)
[2019-03-17] MEDS: CHONDR SU A NA/HYALUR INTRAOC KIT (SURGICARE) ONE ×2 (12:39→12:40)
[2019-03-17] MEDS: EPINEPHRINE INJ/PF 1 MG/1 ML AMPULE ONE ×2 (12:39→12:40)
[2019-03-17] MEDS ORDERED: HYALURONATE SODIUM SYRINGE 0.55 ML ONE (12:51)
[2019-03-17] MEDS: DORZOLAMIDE HCL 2%/TIMOLOL MALEAT 0.5% OPH SOLN 10 ML OD PRN ×2 (13:01)
--- NOTE | 2019-03-17 13:12 | Operative Report ---
Operative Report-[facility] Operative Report: DATE OF SURGERY: 03/17/2019 PREOPERATIVE DIAGNOSIS: 1. 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 CATARACT, RIGHT EYE 2. PRIMARY OPEN ANGLE GLAUCOMA, RIGHT EYE PROCEDURE PERFORMED: PHACOEMULSIFICATION WITH POSTERIOR CHAMBER INTRAOCULAR LENS WITH INSERTION OF ISTENT INJECTION, RIGHT EYE Intraocular Lens Model: SN 60 WF 22.0 Total Phaco Time: 5.17 CDE SURGEON: JODY CHE MD ANESTHESIA: Topical with MAC plus intraocular lidocaine INDICATIONS FOR SURGERY: Difficulty reading newspaper INDICATION FOR ISTENT: Borderline pressure control of glaucoma and reduction in need of topical medication PROCEDURE: The patient was brought to the operating room and placed on operative table. Following Tetracaine drops, topical anesthesia was administered. This consisted of instrument wipes pledgets soaked in a solution of 4% Xylocaine mixed with a 0.75% Marcaine in a 1:2 ratio. A 2 x 1 cm pledget was placed in the superior fornix. A 11 cm pledget was placed in the inferior fornix. The eye was patched shut for 5 minutes. The patch was removed. The eye was sterilely prepped and draped in the usual manner. Lid speculum was placed in the eye. The pledgets were removed and a 4-0 black silk suture was placed around the superior and inferior rectus muscle to use as traction. Conjunctival peritomy was made at the 10 o'clock position. Hemostasis was obtained with bipolar cautery. A posterior limbal groove was created using a crescent knife and dissection anteriorly towards the cornea. A sharp point blade was used to create a paracentesis site at the 2 o'clock position. A 2.4 mm keratome was used to enter the anterior chamber through the group. Viscoelastic was injected into the anterior chamber. Anterior capsulotomy was performed using Utrata forceps in a capsulorrhexis fashion. Hydrodissection and hydrodelineation was performed. Phacoemulsification was performed in a divide and conquer technique. Following this, the I/A unit was used to remove residual cortex. Viscoelastic was injected into the capsular bag. Intraocular lens were placed in the capsular bag. Following insertion of the lens implant, additional Provisc was placed in the eye. The eye was rotated inferiorly and the gonioprism was placed on the eye. The trabecular meshwork was easily visualized. The ISTENT inject was opened and 2 ISTENTs were placed approximately 2 clock hours apart at approximately 6 o'clock and 8 o'clock. There was good reflux through the ISTENTs. The I/A unit was used to remove residual viscoelastic. The wound was seen to be watertight under high and low pressure, and no sutures were placed. The intraocular lens was well centered. The pressure was adjusted in the eye to normal pressure. The 4-0 black silk sutures and lid speculum were removed. The eye was shielded after Besivance and Cosopt drops were placed. The patient tolerated the procedure well and was sent to the recovery room in good condition.
== END 2019-03-17 14:00 | disposition home or self-care (01) ==
LOC: SC 10:25
PROVIDERS: ATTEND Ophthalmology
DX: H25.811 Combined forms of age-related cataract, right eye (principal); H40.1111 Primary open-angle glaucoma, right eye, mild stage; E11.9 Type 2 diabetes mellitus without complications; I10 Essential (primary) hypertension; Z87.891 Personal history of nicotine dependence; Z88.2 Allergy status to sulfonamides; Z79.899 Other long term (current) drug therapy; Z79.84 Long term (current) use of oral hypoglycemic drugs
CPT/HCPCS: 66984; 0191T; 82962; C1783; V2632; J2250; J3490 ×6; A9270; J0171; J2405; 140; J3010

== ENCOUNTER 2019-03-25 09:16 | Outpatient (CLI) | payer MEDICARE ==
[~2019-03-25 09:16] MED LIST changes: +ACETAMINOPHEN 325 MG TABLET PO PRN; -BESIFLOXACIN HCL 0.6% OPH SUSP 5 ML BOTTLE OD PRN; -BUPIVACAINE HCL 0.75% INJ/PF (7.5 MG/1 ML) 10 ML SDV OD PRN; -CHONDR SU A NA/HYALUR INTRAOC KIT (SURGICARE) ONE; -CYCLOPENTOLATE 0.2%/PHENYLEPHRINE 1% OPH SOLN 2 ML OD PRN; +DEXAMETHASONE 10 MG in NS 50 ML IV PRN; +DEXTROSE 5% IV PRN; +DEXTROSE 5%-WATER 250 ML IV PRN; +DIPHENHYDRAMINE 50 MG in NS 50 ML IV PRN; -DORZOLAMIDE HCL 2%/TIMOLOL MALEAT 0.5% OPH SOLN 10 ML OD PRN; -EPINEPHRINE INJ/PF 1 MG/1 ML AMPULE ONE; -FENTANYL CITRATE INJ/PF 100 MCG/2 ML AMPUL ONE; -KETOROLAC TROMETHAMINE 0.45% 4 DROP/0.4 ML DROPERETTE OD PRN; -LIDOCAINE 1% INJ-PF (10 MG/ML) 30 ML SDV ONE; -LIDOCAINE 4% INJ/PF (40 MG/ML) 5 ML AMPUL OD PRN; -MIDAZOLAM 2 MG/2 ML INJ ONE; -ONDANSETRON HCL INJ/PF 4 MG/2 ML SDV ONE; -TETRACAINE HCL 0.5% OPH SOLN 4 ML OD PRN; -TROPICAMIDE 1% OPH SOLN 15 ML OD PRN; +WATER IV PRN; +[UNRECOGNIZED DRUG - OTHER] IV PRN
[2019-03-25 10:31] VITALS: BP 140/63
== END 2019-03-25 11:35 | disposition home or self-care (01) ==
LOC: II 09:16 → 5TH 09:17 → II 11:35
PROVIDERS: ATTEND Internal Medicine
DX: Z51.11 Encounter for antineoplastic chemotherapy (principal); D36.0 Benign neoplasm of lymph nodes; C85.91 Non-Hodgkin lymphoma, unspecified, lymph nodes of head, face, and neck; D47.Z2 Castleman disease
CPT/HCPCS: 96413; 96367; A9270; J1200; J7060; J1100; J2860

== ENCOUNTER 2019-04-07 09:09 | Day surgery (SDC) | payer MEDICARE ==
[~2019-04-07 09:09] MED LIST changes: -ACETAMINOPHEN 325 MG TABLET PO PRN; +BUPIVACAINE HCL 0.75% INJ/PF (7.5 MG/1 ML) 10 ML SDV OS PRN; +CHONDR SU A NA/HYALUR INTRAOC KIT (SURGICARE) ONE; -DEXAMETHASONE 10 MG in NS 50 ML IV PRN; -DEXTROSE 5% IV PRN; -DEXTROSE 5%-WATER 250 ML IV PRN; -DIPHENHYDRAMINE 50 MG in NS 50 ML IV PRN; +DORZOLAMIDE HCL 2%/TIMOLOL MALEAT 0.5% OPH SOLN 10 ML OS PRN; +EPINEPHRINE INJ/PF 1 MG/1 ML AMPULE ONE; +KETOROLAC TROMETHAMINE 0.45% 4 DROP/0.4 ML DROPERETTE OS PRN; +LIDOCAINE 1% INJ-PF (10 MG/ML) 30 ML SDV ONE; +LIDOCAINE 4% INJ/PF (40 MG/ML) 5 ML AMPUL OS PRN; -WATER IV PRN; -[UNRECOGNIZED DRUG - OTHER] IV PRN
[2019-04-07] MEDS: TROPICAMIDE 1% OPH SOLN 15 ML OS PRN ×3 (10:10→10:34)
[2019-04-07] MEDS: TETRACAINE HCL 0.5% OPH SOLN 4 ML OS PRN ×3 (10:10→10:47)
[2019-04-07] MEDS: BESIFLOXACIN HCL 0.6% OPH SUSP 5 ML BOTTLE OS PRN ×3 (10:10→11:26)
[2019-04-07] MEDS: CYCLOPENTOLATE 0.2%/PHENYLEPHRINE 1% OPH SOLN 2 ML OS PRN ×3 (10:10→10:34)
[2019-04-07] MEDS ORDERED: FLUMAZENIL INJ 0.5 MG/5 ML VIAL ONE (11:08)
[2019-04-07] MEDS ORDERED: MIDAZOLAM 2 MG/2 ML INJ ONE (11:27)
[2019-04-07] MEDS ORDERED: HYALURONATE SODIUM SYRINGE 0.55 ML ONE (11:32)
--- NOTE | 2019-04-07 12:42 | Operative Report ---
Operative Report-[facility] Operative Report: DATE OF SURGERY: 04/07/2019 PREOPERATIVE DIAGNOSIS: 1. CATARACT, LEFT EYE. 2. PRIMARY OPEN ANGLE GLAUCOMA, LEFT EYE POSTOPERATIVE DIAGNOSIS: 1. CATARACT, LEFT EYE. 2. PRIMARY OPEN ANGLE GLAUCOMA, LEFT EYE PROCEDURE PERFORMED: PHACOEMULSIFICATION WITH POSTERIOR CHAMBER INTRAOCULAR LENS WITH INSERTION OF ISTENT INJECTION, LEFT EYE Intraocular Lens Model: SN 60 WF 20.5 Total Phaco Time: 6.22 CDE SURGEON: JODY CHE MD ANESTHESIA: Topical with MAC plus intraocular INDICATIONS FOR SURGERY: Difficulty reading road signs INDICATION FOR ISTENT: To improve control of intraocular pressure as well as decrease the need for drop dependence PROCEDURE: The patient was brought to the operating room and placed on operative table. Following Tetracaine drops, topical anesthesia was administered. This consisted of instrument wipes pledgets soaked in a solution of 4% Xylocaine mixed with a 0.75% Marcaine in a 1:2 ratio. A 2 x 1 cm pledget was placed in the superior fornix. A 11 cm pledget was placed in the inferior fornix. The eye was patched shut for 5 minutes. The patch was removed. The eye was sterilely prepped and draped in the usual manner. Lid speculum was placed in the eye. The pledgets were removed and a 4-0 black silk suture was placed around the superior and inferior rectus muscle to use as traction. Conjunctival peritomy was made at the 10 o'clock position. Hemostasis was obtained with bipolar cautery. A posterior limbal groove was created using a crescent knife and dissection anteriorly towards the cornea. A sharp point blade was used to create a paracentesis site at the 2 o'clock position. A 2.4 mm keratome was used to enter the anterior chamber through the group. Viscoelastic was injected into the anterior chamber. Anterior capsulotomy was performed using Utrata forceps in a capsulorrhexis fashion. Hydrodissection and hydrodelineation was performed. Phacoemulsification was performed in a divide and conquer technique. Following this, the I/A unit was used to remove residual cortex. Viscoelastic was injected into the capsular bag. Intraocular lens were placed in the capsular bag. Following insertion of the lens implant, additional Provisc was placed in the eye. The eye was rotated inferiorly and the gonioprism was placed on the eye. The trabecular meshwork was easily visualized. The ISTENT inject was opened and 2 ISTENTs were placed approximately 2 clock hours apart at approximately 6 o'clock and 8 o'clock. There was good reflux through the ISTENTs. The I/A unit was used to remove residual viscoelastic. The wound was seen to be watertight under high and low pressure, and no sutures were placed. The intraocular lens was well centered. The pressure was adjusted in the eye to normal pressure. The 4-0 black silk sutures and lid speculum were removed. The eye was shielded after Besivance and Cosopt drops were placed. The patient tolerated the procedure well and was sent to the recovery room in good condition.
== END 2019-04-07 13:29 | disposition home or self-care (01) ==
LOC: SC 09:09
PROVIDERS: ATTEND Ophthalmology
DX: H25.812 Combined forms of age-related cataract, left eye (principal); H40.1131 Primary open-angle glaucoma, bilateral, mild stage; Z96.1 Presence of intraocular lens; I10 Essential (primary) hypertension; E11.9 Type 2 diabetes mellitus without complications; Z88.2 Allergy status to sulfonamides; Z79.84 Long term (current) use of oral hypoglycemic drugs
CPT/HCPCS: 0191T; 66984; 142; 82962; C1783; J0171; J2250; J3490; V2632

== ENCOUNTER 2019-04-15 09:38 | Outpatient (CLI) | payer MEDICARE ==
[~2019-04-15 09:38] MED LIST changes: +ACETAMINOPHEN 325 MG TABLET PO PRN; -BUPIVACAINE HCL 0.75% INJ/PF (7.5 MG/1 ML) 10 ML SDV OS PRN; -CHONDR SU A NA/HYALUR INTRAOC KIT (SURGICARE) ONE; +DEXAMETHASONE SOD PHOSPHATE 10 MG in NORMAL SALINE 50 ML IV PRN; +DEXTROSE 5% IV PRN; +DEXTROSE 5%-WATER 250 ML IV PRN; +DIPHENHYDRAMINE HCL 50 MG in NORMAL SALINE 50 ML IV PRN; -DORZOLAMIDE HCL 2%/TIMOLOL MALEAT 0.5% OPH SOLN 10 ML OS PRN; -EPINEPHRINE INJ/PF 1 MG/1 ML AMPULE ONE; -KETOROLAC TROMETHAMINE 0.45% 4 DROP/0.4 ML DROPERETTE OS PRN; -LIDOCAINE 1% INJ-PF (10 MG/ML) 30 ML SDV ONE; -LIDOCAINE 4% INJ/PF (40 MG/ML) 5 ML AMPUL OS PRN; +WATER IV PRN; +[UNRECOGNIZED DRUG - OTHER] IV PRN
[2019-04-15 10:10] VITALS: BP 131/64
== END 2019-04-15 12:37 | disposition home or self-care (01) ==
LOC: II 09:38 → 5TH 09:41 → II 12:37
PROVIDERS: ATTEND Internal Medicine
DX: Z51.11 Encounter for antineoplastic chemotherapy (principal); D36.0 Benign neoplasm of lymph nodes; C85.91 Non-Hodgkin lymphoma, unspecified, lymph nodes of head, face, and neck; D47.Z2 Castleman disease
CPT/HCPCS: 96413; 96367; A9270; J1200; J7060; J1100; J2860

== ENCOUNTER 2019-05-06 09:16 | Outpatient (CLI) | payer MEDICARE ==
[~2019-05-06 09:16] MED LIST changes: +DEXAMETHASONE 10 MG in NS 50 ML IV PRN; -DEXAMETHASONE SOD PHOSPHATE 10 MG in NORMAL SALINE 50 ML IV PRN; +DIPHENHYDRAMINE 50 MG in NS 50 ML IV PRN; -DIPHENHYDRAMINE HCL 50 MG in NORMAL SALINE 50 ML IV PRN; +[UNRECOGNIZED DRUG - OTHER] IV PRN; -[UNRECOGNIZED DRUG - OTHER] IV PRN
[2019-05-06 09:42] VITALS: BP 112/58
== END 2019-05-06 11:51 | disposition home or self-care (01) ==
LOC: II 09:16 → 5TH 09:20 → II 11:51
PROVIDERS: ATTEND Internal Medicine
DX: Z51.11 Encounter for antineoplastic chemotherapy (principal); D36.0 Benign neoplasm of lymph nodes; C85.91 Non-Hodgkin lymphoma, unspecified, lymph nodes of head, face, and neck; D47.Z2 Castleman disease
CPT/HCPCS: 96413; 96367; A9270; J1200; J7060; J1100; J2860

== ENCOUNTER 2019-05-27 09:17 | Outpatient (CLI) | payer MEDICARE ==
[~2019-05-27 09:17] MED LIST changes: -DEXTROSE 5% IV PRN; -WATER IV PRN; +[UNRECOGNIZED DRUG - OTHER] IV PRN; -[UNRECOGNIZED DRUG - OTHER] IV PRN
[2019-05-27 09:47] VITALS: BP 126/62
== END 2019-05-27 11:52 | disposition home or self-care (01) ==
LOC: II 09:17 → 5TH 09:19 → II 11:52
PROVIDERS: ATTEND Internal Medicine
DX: Z51.11 Encounter for antineoplastic chemotherapy (principal); C85.91 Non-Hodgkin lymphoma, unspecified, lymph nodes of head, face, and neck
CPT/HCPCS: 96413; 96367; A9270; J1200; J7060; J1100; J2860

== ENCOUNTER → 2019-06-09 | Outpatient (CLI) | payer MEDICARE ==
--- NOTE | 2019-06-09 13:05 | RADIOLOGY REPORT (SQ) ---
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 TECHNIQUE: Blood glucose level was verified. Above dose of FDG was injected intravenously. 2-D seg mented attenuation correction images were obtained from the base of the skull to the midthighs. Nonc ontrast CT images were obtained for attenuation correction and fusion with emission images. CT image s were performed without oral or intravenous contrast and are not sensitive for parenchymal lesions. A series of overlapping emission PET images were obtained. [facility]ologist. Images stored on PACS. LIMITATIONS: None. FINDINGS: HEAD AND NECK: No areas of abnormal metabolic activity in the soft tissues of the head and neck. CHEST: 10 mm short axis pretracheal lymph node measuring 2.3 SUV. No significant change. ABDOMEN AND PELVIS: No areas of abnormal metabolic activity in the abdomen or pelvis. Expected physi ologic activity is present in the genitourinary system and bowel. PROXIMAL LOWER EXTREMITIES: No areas of abnormal metabolic activity in the soft tissues of the lower extremities. BONES: No abnormal metabolic activity in the visualized skeleton. ADDITIONAL CT FINDINGS: Large cortical cyst right kidney. OTHER: Liver background 2.8 SUV. Blood pool 2.5 SUV. IMPRESSION: Borderline uptake associated with small pretracheal lymph node. No significant change. TECHNICAL DOCUMENTATION: JOB ID: [id number] 2010 [employer]- All Rights Reserved Reading location - IP/workstation name: [email or web address]
== END ==
LOC: RAD 08:18
PROVIDERS: ATTEND Physician Assistant Medical
DX: D36.0 Benign neoplasm of lymph nodes (principal); C85.91 Non-Hodgkin lymphoma, unspecified, lymph nodes of head, face, and neck
CPT/HCPCS: 78815; A9552

== ENCOUNTER 2019-06-17 09:24 | Outpatient (CLI) | payer MEDICARE ==
[~2019-06-17 09:24] MED LIST changes: +DEXTROSE 5% IV PRN; +WATER IV PRN; +[UNRECOGNIZED DRUG - OTHER] IV PRN; -[UNRECOGNIZED DRUG - OTHER] IV PRN
[2019-06-17] MEDS ORDERED: ACETAMINOPHEN 325 MG TABLET ONE (09:34)
[2019-06-17 09:39] VITALS: BP 171/92
== END 2019-06-17 12:18 | disposition home or self-care (01) ==
LOC: II 09:24 → 5TH 09:28 → II 12:18
PROVIDERS: ATTEND Internal Medicine
DX: Z51.11 Encounter for antineoplastic chemotherapy (principal); C85.91 Non-Hodgkin lymphoma, unspecified, lymph nodes of head, face, and neck
CPT/HCPCS: 96413; 96367; A9270; J1200; J7060; J1100; J2860

== ENCOUNTER 2019-07-08 09:06 | Outpatient (CLI) | payer MEDICARE ==
[~2019-07-08 09:06] MED LIST changes: +[UNRECOGNIZED DRUG - OTHER] IV PRN; -[UNRECOGNIZED DRUG - OTHER] IV PRN
[2019-07-08 09:26] VITALS: BP 171/66
== END 2019-07-08 12:04 | disposition home or self-care (01) ==
LOC: II 09:06 → 5TH 09:44 → II 12:04
PROVIDERS: ATTEND Internal Medicine
DX: Z51.11 Encounter for antineoplastic chemotherapy (principal); C85.91 Non-Hodgkin lymphoma, unspecified, lymph nodes of head, face, and neck
CPT/HCPCS: 96413; 96367; A9270; J1200; J7060; J1100; J2860

== ENCOUNTER 2019-07-29 09:33 | Outpatient (CLI) | payer MEDICARE ==
[~2019-07-29 09:33] MED LIST changes: -DEXTROSE 5% IV PRN; -WATER IV PRN; +[UNRECOGNIZED DRUG - OTHER] IV PRN; -[UNRECOGNIZED DRUG - OTHER] IV PRN
[2019-07-29 09:40] VITALS: BP 146/73
== END 2019-07-29 12:00 | disposition home or self-care (01) ==
LOC: II 09:33 → 5TH 09:37 → II 12:00
PROVIDERS: ATTEND Internal Medicine
DX: Z51.11 Encounter for antineoplastic chemotherapy (principal); C85.91 Non-Hodgkin lymphoma, unspecified, lymph nodes of head, face, and neck
CPT/HCPCS: 96413; 96367; A9270; J1200; J7060; J1100; J2860

== ENCOUNTER 2019-08-19 09:10 | Outpatient (CLI) | payer MEDICARE ==
[~2019-08-19 09:10] MED LIST changes: +DEXTROSE 5% IV PRN; +WATER IV PRN; +[UNRECOGNIZED DRUG - OTHER] IV PRN; -[UNRECOGNIZED DRUG - OTHER] IV PRN
[2019-08-19 09:29] VITALS: BP 142/70
== END 2019-08-19 12:42 | disposition home or self-care (01) ==
LOC: II 09:10 → 5TH 09:14 → II 12:42
PROVIDERS: ATTEND Internal Medicine
DX: Z51.11 Encounter for antineoplastic chemotherapy (principal); C85.91 Non-Hodgkin lymphoma, unspecified, lymph nodes of head, face, and neck
CPT/HCPCS: 96413; 96367; A9270; J1200; J7060; J1100; J2860

== ENCOUNTER 2019-09-09 10:15 | Outpatient (CLI) | payer MEDICARE ==
[~2019-09-09 10:15] MED LIST changes: -DEXAMETHASONE 10 MG in NS 50 ML IV PRN; +DEXAMETHASONE SOD PHOSPHATE 10 MG in NORMAL SALINE 50 ML IV PRN; -DEXTROSE 5% IV PRN; -DIPHENHYDRAMINE 50 MG in NS 50 ML IV PRN; +DIPHENHYDRAMINE HCL 50 MG in NORMAL SALINE 50 ML IV PRN; -WATER IV PRN; +[UNRECOGNIZED DRUG - OTHER] IV PRN; -[UNRECOGNIZED DRUG - OTHER] IV PRN
[2019-09-09 10:28] VITALS: BP 141/72
== END 2019-09-09 13:00 | disposition home or self-care (01) ==
LOC: II 10:15 → 5TH 10:15 → II 13:00
PROVIDERS: ATTEND Internal Medicine
DX: Z51.11 Encounter for antineoplastic chemotherapy (principal); C85.91 Non-Hodgkin lymphoma, unspecified, lymph nodes of head, face, and neck
CPT/HCPCS: 96413; 96367; A9270; J1200; J7060; J1100; J2860

== ENCOUNTER → 2019-09-22 | Outpatient (CLI) | payer MEDICARE ==
--- NOTE | 2019-09-23 13:01 | RADIOLOGY REPORT (SQ) ---
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 TECHNIQUE: Blood glucose level was verified. Above dose of FDG was injected intravenously. 2-D seg mented attenuation correction images were obtained from the base of the skull to the midthighs. Nonc ontrast CT images were obtained for attenuation correction and fusion with emission images. CT image s were performed without oral or intravenous contrast and are not sensitive for parenchymal lesions. A series of overlapping emission PET images were obtained. Images reviewed and manipulated at [facility] work station by the radiologist. Images stored on PACS. LIMITATIONS: None. FINDINGS: HEAD AND NECK: No areas of abnormal metabolic activity in the soft tissues of the head and neck. CHEST: No areas of abnormal metabolic activity in the chest. ABDOMEN AND PELVIS: No areas of abnormal metabolic activity in the abdomen or pelvis. Expected physi ologic activity is present in the genitourinary system and bowel. PROXIMAL LOWER EXTREMITIES: No areas of abnormal metabolic activity in the soft tissues of the lower extremities. BONES: No abnormal metabolic activity in the visualized skeleton. ADDITIONAL CT FINDINGS: No additional significant findings on the noncontrast CT images. Mild cardio megaly. Benign right renal cortical cyst. OTHER: Liver background activity 2.6 SUV. Blood pool background activity 1.9 SUV IMPRESSION: No metabolically active adenopathy TECHNICAL DOCUMENTATION: JOB ID: [id number] 2010 [employer]- All Rights Reserved Reading location - IP/workstation name: [email or web address]
== END ==
LOC: RAD 09:09
PROVIDERS: ATTEND Internal Medicine
DX: C85.91 Non-Hodgkin lymphoma, unspecified, lymph nodes of head, face, and neck (principal)
CPT/HCPCS: 78815; A9552

== ENCOUNTER 2019-09-30 09:49 | Outpatient (CLI) | payer MEDICARE ==
[2019-09-30 10:27] VITALS: BP 147/73
== END 2019-09-30 12:30 | disposition home or self-care (01) ==
LOC: II 09:49 → 5TH 09:53 → II 12:30
PROVIDERS: ATTEND Internal Medicine
DX: Z51.11 Encounter for antineoplastic chemotherapy (principal); C85.91 Non-Hodgkin lymphoma, unspecified, lymph nodes of head, face, and neck
CPT/HCPCS: 96413; 96367; A9270; J1200; J7060; J1100; J2860

== ENCOUNTER 2019-10-21 09:43 | Outpatient (CLI) | payer MEDICARE ==
[~2019-10-21 09:43] MED LIST changes: +DEXTROSE 5% IV PRN; +WATER IV PRN; +[UNRECOGNIZED DRUG - OTHER] IV PRN; -[UNRECOGNIZED DRUG - OTHER] IV PRN
[2019-10-21 10:05] VITALS: BP 148/77
== END 2019-10-21 13:00 | disposition home or self-care (01) ==
LOC: II 09:43 → 5TH 10:10 → II 13:00
PROVIDERS: ATTEND Internal Medicine
DX: Z51.11 Encounter for antineoplastic chemotherapy (principal); C85.91 Non-Hodgkin lymphoma, unspecified, lymph nodes of head, face, and neck
CPT/HCPCS: 96413; 96367; A9270; J1200; J7060; J1100; J2860

== ENCOUNTER 2019-11-11 10:07 | Outpatient (CLI) | payer MEDICARE ==
[~2019-11-11 10:07] MED LIST changes: +DEXAMETHASONE 10 MG in NS 50 ML IV PRN; -DEXAMETHASONE SOD PHOSPHATE 10 MG in NORMAL SALINE 50 ML IV PRN; +DIPHENHYDRAMINE 50 MG in NS 50 ML IV PRN; -DIPHENHYDRAMINE HCL 50 MG in NORMAL SALINE 50 ML IV PRN; +[UNRECOGNIZED DRUG - OTHER] IV PRN; -[UNRECOGNIZED DRUG - OTHER] IV PRN
[2019-11-11 10:15] VITALS: BP 140/59
== END 2019-11-11 13:00 | disposition home or self-care (01) ==
LOC: II 10:07 → 5TH 10:10 → II 13:00
PROVIDERS: ATTEND Internal Medicine
DX: Z51.11 Encounter for antineoplastic chemotherapy (principal); C85.91 Non-Hodgkin lymphoma, unspecified, lymph nodes of head, face, and neck
CPT/HCPCS: 96413; 96367; A9270; J1200; J7060; J1100; J2860

== ENCOUNTER 2019-12-02 09:41 | Outpatient (CLI) | payer MEDICARE ==
[~2019-12-02 09:41] MED LIST changes: -DEXAMETHASONE 10 MG in NS 50 ML IV PRN; +DEXAMETHASONE SOD PHOSPHATE 10 MG in NORMAL SALINE 50 ML IV PRN; -DEXTROSE 5% IV PRN; -DIPHENHYDRAMINE 50 MG in NS 50 ML IV PRN; +DIPHENHYDRAMINE HCL 50 MG in NORMAL SALINE 50 ML IV PRN; -WATER IV PRN; +[UNRECOGNIZED DRUG - OTHER] IV PRN; -[UNRECOGNIZED DRUG - OTHER] IV PRN
[2019-12-02 12:42] VITALS: BP 127/69
== END 2019-12-02 12:51 | disposition home or self-care (01) ==
LOC: II 09:41 → 5TH 09:42 → II 12:51
PROVIDERS: ATTEND Internal Medicine
DX: Z51.11 Encounter for antineoplastic chemotherapy (principal); C85.91 Non-Hodgkin lymphoma, unspecified, lymph nodes of head, face, and neck
CPT/HCPCS: 96413; 96367; A9270; J1200; J7060; J1100; J2860

== ENCOUNTER 2019-12-23 10:37 | Outpatient (CLI) | payer MEDICARE ==
[~2019-12-23 10:37] MED LIST changes: +DEXAMETHASONE 10 MG in NS 50 ML IV PRN; -DEXAMETHASONE SOD PHOSPHATE 10 MG in NORMAL SALINE 50 ML IV PRN; +DIPHENHYDRAMINE 50 MG/ML VIAL IV PRN
[2019-12-23] MEDS ORDERED: DEXTROSE 5% IV PRN (11:01)
[2019-12-23] MEDS ORDERED: [UNRECOGNIZED DRUG - OTHER] IV PRN (11:01)
[2019-12-23] MEDS ORDERED: WATER IV PRN (11:01)
[2019-12-23 11:22] VITALS: BP 139/95
== END 2019-12-23 13:15 | disposition home or self-care (01) ==
LOC: II 10:37 → 5TH 10:44 → II 13:15
PROVIDERS: ATTEND Internal Medicine
DX: Z51.11 Encounter for antineoplastic chemotherapy (principal); C85.91 Non-Hodgkin lymphoma, unspecified, lymph nodes of head, face, and neck
CPT/HCPCS: 96413; 96367; A9270; J1200; J7060; J1100; J2860

== ENCOUNTER 2020-01-13 10:37 | Outpatient (CLI) | payer MEDICARE ==
[~2020-01-13 10:37] MED LIST changes: +DEXTROSE IV PRN; +DIPHENHYDRAMINE 50 MG in NS 50 ML IV PRN; -DIPHENHYDRAMINE 50 MG/ML VIAL IV PRN; -DIPHENHYDRAMINE HCL 50 MG in NORMAL SALINE 50 ML IV PRN; +[UNRECOGNIZED DRUG - OTHER] IV PRN; -[UNRECOGNIZED DRUG - OTHER] IV PRN
[2020-01-13 13:37] VITALS: BP 141/63
== END 2020-01-13 15:00 | disposition home or self-care (01) ==
LOC: II 10:37 → 5TH 10:38 → II 15:00
PROVIDERS: ATTEND Internal Medicine
DX: Z51.11 Encounter for antineoplastic chemotherapy (principal); C85.91 Non-Hodgkin lymphoma, unspecified, lymph nodes of head, face, and neck
CPT/HCPCS: 96413; 96367; A9270; J1200; J7060; J1100; J2860

== ENCOUNTER 2020-02-03 10:32 | Outpatient (CLI) | payer MEDICARE ==
[~2020-02-03 10:32] MED LIST changes: -DEXAMETHASONE 10 MG in NS 50 ML IV PRN; +DEXAMETHASONE SOD PHOSPHATE 10 MG in NORMAL SALINE 50 ML IV PRN; +DEXTROSE 5% IV PRN; -DEXTROSE IV PRN; -DIPHENHYDRAMINE 50 MG in NS 50 ML IV PRN; +DIPHENHYDRAMINE HCL 50 MG in NORMAL SALINE 50 ML IV PRN; +WATER IV PRN; +[UNRECOGNIZED DRUG - OTHER] IV PRN; -[UNRECOGNIZED DRUG - OTHER] IV PRN
[2020-02-03 10:45] VITALS: BP 155/82
== END 2020-02-03 14:17 | disposition home or self-care (01) ==
LOC: II 10:32 → 5TH 10:35 → II 14:17
PROVIDERS: ATTEND Internal Medicine
DX: Z51.11 Encounter for antineoplastic chemotherapy (principal); C85.91 Non-Hodgkin lymphoma, unspecified, lymph nodes of head, face, and neck
CPT/HCPCS: 96367; 96413; J1100; J1200; J2860; J7060

== ENCOUNTER 2020-02-24 11:48 | Outpatient (CLI) | payer MEDICARE ==
[2020-02-24 12:47] VITALS: BP 132/66
== END 2020-02-24 15:00 | disposition home or self-care (01) ==
LOC: II 11:48 → 5TH 11:50 → II 15:00
PROVIDERS: ATTEND Internal Medicine
DX: Z51.11 Encounter for antineoplastic chemotherapy (principal); C85.91 Non-Hodgkin lymphoma, unspecified, lymph nodes of head, face, and neck
CPT/HCPCS: 96413; 96367; J1200; J7060; J1100; J2860

== ENCOUNTER 2020-03-16 09:21 | Outpatient (CLI) | payer MEDICARE ==
[~2020-03-16 09:21] MED LIST changes: +DEXAMETHASONE 10 MG in NS 50 ML IV PRN; -DEXAMETHASONE SOD PHOSPHATE 10 MG in NORMAL SALINE 50 ML IV PRN; -DEXTROSE 5% IV PRN; +DEXTROSE IV PRN; +DIPHENHYDRAMINE 50 MG in NS 50 ML IV PRN; -DIPHENHYDRAMINE HCL 50 MG in NORMAL SALINE 50 ML IV PRN; -WATER IV PRN; +[UNRECOGNIZED DRUG - OTHER] IV PRN; -[UNRECOGNIZED DRUG - OTHER] IV PRN
[2020-03-16 09:55] VITALS: BP 179/64
== END 2020-03-16 12:46 | disposition home or self-care (01) ==
LOC: II 09:21 → 5TH 10:34 → II 12:46
PROVIDERS: ATTEND Internal Medicine
DX: Z51.11 Encounter for antineoplastic chemotherapy (principal); C85.91 Non-Hodgkin lymphoma, unspecified, lymph nodes of head, face, and neck
CPT/HCPCS: 96413; 96367; A9270; J1200; J7060; J1100; J2860

== ENCOUNTER → 2020-03-29 | Outpatient (CLI) | payer MEDICARE ==
--- NOTE | 2020-03-31 13:09 | RADIOLOGY REPORT (SQ) ---
EXAM DESCRIPTION: PET CT SKULL/THIGH IMAGES COMPLETED DATE/TIME: 03/29/2020 11:17 am REASON FOR STUDY: (C85.91)NON-HODGKIN LYMPHOMA, UNSP, NODES OF HEAD, FACE, AND NECK C85.91 NON-HODG KIN LYMPHOMA, UNSP, NODES OF HEAD, FACE, AND COMPARISON: PET from 09/22/2019. RADIONUCLIDE AND DOSE: 9.75 mCi F18 FDG The route of agent administration: Intravenous FASTING BLOOD SUGAR: 123 mg/dl CONTRAST TYPE AND DOSE: No CT contrast given. TECHNIQUE: Blood glucose level was verified. Above dose of FDG was injected intravenously. 2-D seg mented attenuation correction images were obtained from the base of the skull to the midthighs. Nonc ontrast CT images were obtained for attenuation correction and fusion with emission images. CT image s were performed without oral or intravenous contrast and are not sensitive for parenchymal lesions. A series of overlapping emission PET images were obtained. Images reviewed and manipulated at [facility] work station by the radiologist. Images stored on PACS. LIMITATIONS: None. FINDINGS: HEAD AND NECK: No areas of abnormal metabolic activity in the soft tissues of the head and neck. CHEST: No areas of abnormal metabolic activity in the chest. ABDOMEN AND PELVIS: The liver demonstrates homogeneous FDG uptake with an average SUV of 2.4. There i s expected physiologic activity throughout the gastrointestinal and genitourinary tracts. The partia lly calcified subcutaneous lesion in the ventral right abdominal wall (image 130 of series 3) is unch anged. There are no areas of abnormal metabolic activity in the abdomen and pelvis. PROXIMAL LOWER EXTREMITIES: No areas of abnormal metabolic activity in the soft tissues of the lower extremities. BONES: No areas of abnormal metabolic activity in the skeleton. ADDITIONAL CT FINDINGS: No acute abnormality on the noncontrast CT. OTHER: No other findings. IMPRESSION: Negative PET-CT. TECHNICAL DOCUMENTATION: JOB ID: [id number] 2010 [employer]- All Rights Reserved Reading location - IP/workstation name: [email or web address]
== END ==
LOC: RAD 08:46
PROVIDERS: ATTEND Physician Assistant Medical
DX: C85.91 Non-Hodgkin lymphoma, unspecified, lymph nodes of head, face, and neck (principal)
CPT/HCPCS: 78815; A9552

== ENCOUNTER 2020-04-06 11:14 | Outpatient (CLI) | payer MEDICARE ==
[~2020-04-06 11:14] MED LIST changes: -DEXTROSE IV PRN; +[UNRECOGNIZED DRUG - OTHER] IV PRN; -[UNRECOGNIZED DRUG - OTHER] IV PRN
[2020-04-06 11:26] VITALS: BP 148/89
== END 2020-04-06 14:06 | disposition home or self-care (01) ==
LOC: II 11:14 → 5TH 11:17 → II 14:06
PROVIDERS: ATTEND Internal Medicine
DX: Z51.11 Encounter for antineoplastic chemotherapy (principal); C85.91 Non-Hodgkin lymphoma, unspecified, lymph nodes of head, face, and neck
CPT/HCPCS: 96413; 96367; A9270; J1200; J7060; J1100; J2860